=== PATIENT | female | born 1960 | race Caucasian/White ===

== ENCOUNTER 2024-08-25 10:00 | Emergency (ER) | payer BC, SELFPAY ==
--- OUTSIDE RECORDS SUMMARY | 2020-02-06 04:03 | XMS_ITS | Continuity of Care Document ---
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 Infuse by IV route. - Active Remicade 100 mg intravenous solution Administer Remicade 5mg/kg every eight weeks, infuse by IV route - Active Injectafer 50 mg iron/mL intravenous solution Administer 2 doses of 750mg Injectafer by IV route at least 7 days apart over at least 15 minutes - Active simvastatin 10 mg tablet take 1Tablet by ORAL route every day in the evening - Active multivitamin tablet take 1 tablet by oral route every day with food - Active trazodone 50 mg tablet take 1 Tablet by ORAL route every bedtime PRN - Active ROPINIROLE HCL (unknown strength) take 1 tablet by oral route 1 times every day 10mg Not Available - Active paroxetine 10 mg tablet take 1 tablet by oral route every day 10 MG - Active Procedures Procedure Date Offic/outpt E&m Estab Mod-hi 2 Routine Serum Collection Bld Ct; Hgb Ferritin Iron Iron Binding Capacity Cyanocobalamin Offic/outpt E&m Estab Mod-hi 2 19 Iv Infus Therap/dx-by Phys; To Injectafer, 1 mg Iv Infus Therap/dx-by Phys; To Injectafer, 1 mg Offic/outpt E&m Estab Mod-hi 2 19 Routine Serum Collection Immuniz Admin; 1/combo Vacc/to 19 [id number] Vaccine Immuniz Admin; 2/> Sing/comb V Hepatitis B Vac Adult Dose-im 9 Ferritin Folic Acid; Serum Iron Iron Binding Capacity Cyanocobalamin Vitamin D; 25 Hydroxy Offic/outpt E&m Estab Mod-hi 2 19 Routine Serum Collection Bld Ct; Hg/pltlt Ct Auto/compl 19 Hepatitis A Antibody; Igg & Ig Hep B Core Antibody Hepatitis B Surface Antibody Ag-immunoassay; Hep B Surface 9 Hepatic Function Panel Colonoscopy Flex; W/bx 1/mx Level Iv-surg Path Gross/micro 19 Offic/outpt E&m Estab Mod-hi 2 19 Offic/outpt E&m Estab Mod-hi 2 19 Stool Kits Given FilmArray GI Panel Offic/outpt E&m New Mod-hi Routine Serum Collection Gg; Iga, Igd, Igg, Igm, Ea C-reactive Prot Bld Ct; Hg/pltlt Ct Auto/compl 19 Advance Directives Directive Yes / No Effective Date File Name No Information Encounters Encounter Description Practice Location Reason(s) For Visit Diagnoses Date Provider Providers Copied on Encounter [facility] [address] [address] [address], [place], [id number], [place] tel:[phone] [facility] No Information 0 Garrett Stewart. [address] [facility], [address], [id number], [place]. tel:[phone] Offic/outpt E&m Estab Mod-hi 2 [facility], [address] [address], [place], [id number], [place] tel:[phone] [facility] Comment (chief complaint) Crohn's disease of both small and lg int w/o complicationsDie tary counseling and surveillance 0 Haley Jacobo. [address] [facility], [address], [id number], [place]. tel:[phone] Referring Provider: Referral Self, USE FOR SELF REFERRALS. [facility], [address] [address], [place], [id number], [place] tel:[phone] [facility] Crohn's disease of both small and lg int w/o complicationsIro n deficiency anemia, unspecified 0 Haley Jacobo. [address] [facility], [facility] [address], [place], [id number], [place]. tel:[phone] Referring Provider: Referral Self, USE FOR SELF REFERRALS. [facility], [address] [address], [place], [id number], [place] tel:[phone] [facility] No Information 9 Haley Jacobo. [address] [facility], [facility] [address], [place], [id number], [place]. tel:[phone] [facility], [address] [address], [place], [id number], [place] tel:[phone] [facility] Crohn's disease of both small and large intestine without complication 9 Haley Jacobo. [address] [facility], [facility] [address], [place], [place], [id number], [place]. tel:[phone] Offic/outpt E&m Estab Mod-hi 2 [facility], [address] [address], [place], [id number], [place] tel:[phone] [facility] GI Symptoms or Concerns (chief complaint) Crohn's disease of both small and large intestine without complicationDiar juan c, unspecifiedLower abdominal painDietary counseling and surveillance 9 Haley Jacobo. [address] [place] [address], [address], [id number], [place]. tel:[phone] Referring Provider: Referral Self, USE FOR SELF REFERRALS. [facility], [address] [address], [place], [id number], [place] tel:[phone] [facility] Iron deficiency anemia, unspecified 9 Jah Lake. [address], [id number], [place]. tel:[phone] Referring Provider: Referral Self, USE FOR SELF REFERRALS. [facility], [address] [address], [place], [id number], [place] tel:[phone] [facility] Iron deficiency anemia, unspecified 9 Amber Fernandez. [address] [facility], [address], [id number], [place]. tel:[phone] Referring Provider: Referral Self, USE FOR SELF REFERRALS. [facility], [address] [address], [place], [id number], [place] tel:[phone] [facility] No Information 9 Haley Jacobo. [address], [id number], [place]. tel:[phone] [facility], [address] [address], [place], [id number], [place] tel:[phone] [facility] Crohn's disease of both small and large intestine without complicationIron deficiency anemia, unspecified iron deficiency anemia type 9 Haley Jacobo. [facility], [address], [id number], . tel:[phone] Offic/outpt E&m Estab Mod-hi 2 [facility], [address] [address], [place], [place], [id number], [place] tel:[phone] [facility] GI Symptoms or Concerns (chief complaint) Crohn's disease of both small and large intestine without complicationDiet kathy counseling and surveillance 9 Haley Jacobo. [address] [facility], [facility] [address], [id number], [place]. tel:[phone] Referring Provider: Referral Self, USE FOR SELF REFERRALS. [facility], [address] [address], [place], [place], [id number], tel:[phone] [facility] No Information 9 No Information Offic/outpt E&m Estab Mod-hi 2 [facility], [address] [address], [place], [place], [id number], tel:[phone] [facility] GI Symptoms or Concerns (chief complaint) Crohn's disease of both small and large intestine without complicationDiet kathy counseling and surveillance 9 Adali Hong. [address] [facility], [facility] [address], [place], [id number], [place]. tel:[phone] Referring Provider: Beck Parks, [address] [place], [place], [facility]. tel:[phone] [facility], [address] [address], [place], [place], [id number], tel:[phone] [facility] Diarrhea, unspecifiedCrohn 's disease, unspecified, without complicationsDia rrhea, unspecified 9 Chris Lazo. [address] [facility], [facility] [address], [place], [id number], . tel:[phone] Referring Provider: Beck Parks, [address] [facility], [place], [place], [facility]. tel:[phone] [facility], [address] [address], [place], [id number], [place] tel:[phone] [facility] Diarrhea, unspecified 9 Haley Jacobo. [address] [place] [address], [address], [id number], [place]. tel:[phone] Offic/outpt E&m Estab Mod-hi 2 [facility], [address] [address], [place], [id number], [place] tel:[phone] [facility] GI Symptoms or Concerns (chief complaint) Diarrhea, unspecifiedLower abdominal painDecreased appetiteWeight lossDietary counseling and surveillanceElev ated blood-pressure reading, w/o diagnosis of htn 9 Haley Jacobo. [address] [place] [address], [id number], [place]. tel:[phone] Referring Provider: Referral Self, USE FOR SELF REFERRALS. Offic/outpt E&m Estab Mod-hi 2 [facility], [address] [address], [place], [id number], [place] tel:[phone] [facility] GI Symptoms or Concerns (chief complaint) Diarrhea, unspecifiedLower abdominal painDietary counseling and surveillance 9 Haley Jacobo. [address] [place] [address], [id number], [place]. tel:[phone] Jason Carballo MD. tel:[phone] erring Provider: Referral Self, USE FOR SELF REFERRALS. [facility], [address] [address], [place], [place], [id number], [place] tel:[phone] [facility] Diarrhea, unspecified 9 Radha Wong. [address] [place] [address], [id number], [place]. tel:[phone] Jason Carballo MD. tel:[phone] erring Provider: Referral Self, USE FOR SELF REFERRALS. Offic/outpt E&m New Mod-hi [facility], [address] [address], [place], [place], [id number], [place] tel:[phone] [facility] GI Symptoms or Concerns (chief complaint) Diarrhea, unspecified typeDietary counseling and surveillanceEsse ntial (primary) hypertension 201 9 Radha Wong. [address] [facility], [facility] [address], [place], [place], [id number], [place]. tel:[phone] Jason Carballo MD. tel:[phone] erring Provider: Referral Self, USE FOR SELF REFERRALS. Family History Family Member Type Diagnosis Age At Onset Sister Problem (finding) Colon polyps Brother Problem (finding) Alive and well Mother Problem (finding) Alive and well Father Problem (finding) Sister Problem (finding) Alive and well Daughter Problem (finding) Alive and well Son Problem (finding) Alive and well Immunizations Vaccine Date Status Comments Engerix-B administered Note: [facility] bi-d irectional interface ; Source: Other Registry Hep B, adult, 3 dose administered Source: New Immunization Record Pneumococcal conjugate PCV 13 administere d Source: New Immunization Record typhoid Vi capsular polysaccharide vaccine administered Note: [facility] bi-dir ectional interface ; Source: Other Registry Havrix administered Note: [facility] bi-d irectional interface ; Source: Other Registry Seasonal, quadrivalent, recombinant, injectable influenza vaccine, preservative free administered Note: [facility] bi-direct ional interface ; Source: Other Registry Influenza, injectable, MDCK, preservative free Flucelvax Quad 2017-2018Y administered Source: Other Provid er tetanus toxoid, reduced diphtheria toxoid, and acellular pertussis vaccine, adsorbed administered Note: [facility] bi-direct ional interface ; Source: Other Registry Influenza, injectable,quadrivalent, preservative free, pediatric administered Note: [facility] bi-directional interface ; Source: Other Registry tetanus and diphtheria toxoi ds, adsorbed, preservative free, for adult use (2 Lf of tetanus toxoid and 2 Lf of diphtheria toxoid) administered Note: [facility] bi-direct ional interface ; Source: Other Registry influenza virus vaccine, unspecified formulation administered Note: [facility] bi-di rectional interface ; Source: Other Registry Payers Payer name Insurance type Covered green party ID Thai vergara(s) [facility] [id number] Social History Type Description Quantity Date Captured Comments Sex Female Smoking Status No Information Chief Complaint And Reason For Visit No Information Reason For Referral Reason For Referral No Information Plan Of Treatment Date Type Action Status Goal Lifestyle education regardin g diet completed Goal Lifestyle education regardin g diet completed Goal Lifestyle education regardin g diet completed Goal Lifestyle education regardin g diet completed Goal Lifestyle education regardin g diet completed Goal Lifestyle education regardin g diet completed Goal Lifestyle education regardin g diet completed Referral Ordered: HGB Appointment date/timeframe: 02/11/2019 ordered Referral Ordered: Ferritin Appointment date/timeframe: 02/11/2019 ordered Referral Ordered: Iron/TIBC Appointment date/timeframe: 02/11/2019 ordered Referral Ordered: Vitamin B12 Appointment date/timeframe: 02/26/2019 ordered Referral Ordered: Administer 2 doses of 750mg Injectafer by IV route at least 7 days apart over at least 15 minutes ordered Referral Ordered: Doppler Mesenteric Vessels Appointment date/timeframe: 10/09/2018 ordered Referral Ordered: Colonoscopy Appointment date/timeframe: 11/06/2018 ordered Referral Ordered: CT Enterography WITH Contrast Appointment date/timeframe: 09/28/2018 ordered History Of Present Illness Encounter Date Complaint History Of Prese nt Illness Comment The patient is a 58-year-old female who is here for followup of Crohn's disease. The patient was diagnosed with Crohn's disease in approximately September 2018. She has had extensive ileal and focal transverse inflammation based on prior colonoscopy and prior CT scans. She has had some symptoms dating back to May 2018. Her symptoms previously were mainly diarrhea and abdominal cramping and nausea and decreased appetite and weight loss. At her last GI Clinic visit, we discussed treatment options for her Crohn's disease and she had elected to start Remicade. After her GI Clinic visit, the patient decided not to start Remicade since she was feeling well. She denies any GI symptoms at this time aside from some mild constipation. She does not need to use any laxatives. She denies any diarrhea or abdominal pain or nausea or vomiting, rectal bleeding, or weight loss. She does report some weight gain. GI Symptoms or Concerns The benito ent is a 58-year-old female who is here for followup of Crohn's disease. The patient was last seen in GI Clinic on December 25, 2018. She has had symptoms of diarrhea, abdominal pain, and weight loss dating back to May 2018. She had a CT enterography in September 2018 that showed inflammation involving most of her ileum and some of her jejunum. She had a subsequent CT enterography in November that showed no significant change in her inflammation involving most of the ileum and some of the jejunum. She also had a colonoscopy in September that revealed aphthous ulcers in the terminal ileum as well as some aphthous ulcers in the transverse colon. Biopsies revealed chronic ileitis and biopsies of the transverse colon revealed focal active colitis with a granuloma. These results together were consistent with Crohn's disease. I had the CT enterography images from November reviewed at [facility] as well today. I spoke with the radiologist at [facility] today and al GI Symptoms or Concerns Patient is a 58-year-old female who is here for followup of diarrhea, abdominal pain and weight loss. Patient developed symptoms of diarrhea, abdominal pain and weight loss in June 2018. She had a CT enterography in September 2014 that revealed inflammation involving most of her ileum and some of her jejunum. Subsequently, she had colonoscopy on October 10 that revealed some aphthous ulcers in the ileum as well as in the transverse colon. Biopsies of the ileum revealed some chronic ileitis and biopsies of the transverse colon revealed some focal active colitis with a granuloma. She was started on Lialda 4.8 g daily after her colonoscopy and was also taking Imodium tablets at that time. She was seen again in GI Clinic by Dr. Hal Bro on November 10, 2018. At that time, she was started on a prednisone taper and she reports that she has stopped taking mesalamine about a week after that appointment. She is down to 10 mg per day on her prednisone taper and will be off predn GI Symptoms or Concerns The benito ent is a very pleasant 58-year-old woman with past medical history significant for hyperlipidemia and irritable bowel syndrome. She was in her normal state of health until early this year when she began developing diarrhea and gas. For 20 years, she had been taking fiber with good control of her diarrhea predominant irritable bowel syndrome, but this stopped working. She was seen in clinic, had a set of labs that showed a mildly elevated CRP at 12, otherwise CBC and electrolytes were normal. She was counseled to try Imodium, and found symptomatic relief with this, but continued to have periumbilical cramping and when stopping the Imodium, would have returns of urgent diarrhea up to 7 times a day. She was then seen back in clinic and had a CT scan, which showed inflammation in the small intestine, worrisome for enteritis. She then underwent a colonoscopy, which showed a few aphthous ulcerations in the transverse colon, one of which showed acute inflammation and a granu GI Symptoms or Concerns Patient is a 57-year-old female who is here for followup of diarrhea and abdominal pain. She was last seen in GI clinic on July 06, 2018. She reports she was diagnosed with irritable bowel syndrome over 20 years ago. She reports her diarrhea has become more constant more recently. She reports a lot more stress and anxiety in her personal life and this has not changed since her last GI clinic visit. She had negative stool studies and negative blood tests for thyroid disease and celiac disease. She reports her last colonoscopy was approximately 5 years ago at an outside facility. She did not want to pursue a colonoscopy at her last GI clinic visit. After her last GI clinic visit, we recommended Levsin as needed for abdominal pain and diarrhea and Imodium as needed just for diarrhea. We also recommended some fiber wafers to see if this would help with some of her diarrhea. She reports the Levsin did not help, so she stopped taking this. She reports that fiber wafers did not taste GI Symptoms or Concerns Patient is a 57-year-old female who is here for followup of diarrhea. Patient saw Dr. Marvin Garcia on June 12, 2018. Patient reports she was diagnosed with IBS diarrhea approximately 20 years ago after she quit smoking. She reports that 2 or 3 months ago, she developed more constant diarrhea. She reports that around this time, she developed a lot of more stress and anxiety relating to some personal problems she has been having in her relationship. She anticipates this will hopefully start to improve over the coming months. She reports that if she does not take Imodium, she has 6 to 7 watery bowel movements everyday. She has been taking up to 5 Imodium tablets per day, which actually have sometimes led to constipation. She reports that she occasionally does have some lower abdominal cramping prior to bowel movements. She reports she has had a colonoscopy at an outside facility about 5 years ago, was told to repeat in 10 years. She denies any rectal bleeding or significant weight GI Symptoms or Concerns A 57-yea r-old female who presents for evaluation of 2 to 3 months of worsened diarrhea and gas. She says that 20 years ago, she was diagnosed with diarrhea predominant irritable bowel syndrome and that for the most part, symptoms have been well controlled on FiberCon 6 per day. Over the past 2 to 3 months, she has been under a lot more stress and diarrhea has been slightly worse. She has had increasing gas, will sometimes have constipation in the morning and then diarrhea in the afternoon.She did go on vacation to [place] and returned about a week and a half ago. She did have a bladder infection and was on antibiotics for about a week, but stopped those about a week ago. She denies any known sick contacts on her trip. Over the past week and a half, her diarrhea has been much worse up to 8 or 9 times per day with significant urgency and lower abdominal cramping relieved with bowel movements. She has not had any blood in her stool or has she had nausea, vomiting, fevers, or Functional Status Date Functional Assessmen t No Information Instructions Date Instruction Additional Infor radha -Patient has decided to hold off on starting remicade at this time since is feeling well - patient is aware that Crohn's disease may worsen over time and complications such as strictures, fistulas, or abscesses may occur over time without treatment-Will perform an MR enterography in 3 months to reassess Crohn's disease activity and if there is significant progression of Crohn's disease then she will reconsider starting remicade-Avoid NSAIDs-Calcium and vitamin D-Pneumovax vaccination deferred for tak-Btipgd-ms in 3 months, after MRE - patient will let us know if she develops significant persistent GI symptoms before then Related to Crohn's disease of both small and lg int w/o complications Lifestyle education regarding di et Related to Dietary counseling and surveillance -We had a long discu ssion today regarding treatment options including 6MP/azathioprine, humira, remicade. Patient has decided to start remicade for treatment of her moderate to severe Crohn's disease. We discussed R/B/A of remicade, including, but not limited to, risks of serious infections, cancer, lymphoma, allergic reactions, infusion reactions, liver injury, drug induced lupus or psoriasis, heart failure, seizures, and demyelinating disorders, and patient agreed to proceed with remicade.-Avoid NSAIDs-Calcium and vitamin D-Pneumovax vaccination 8 weeks after prevnar rkovacb-Bprojq-xp in 2 months Related to Crohn's disease of both small and large intestine without complication Lifestyle education regarding di et Related to Dietary counseling and surveillance -Labs as ordered-Pat ient's colonoscopy biopsy results and CTE results are consistent with Crohn's disease. We will request the [facility] radiology CTE results from 09/2018 and 11/2018 be reviewed at [facility] as soon as possible to confirm the extent of the involved small bowel as this may affect medication treatment choices. We had a brief discussion about biologics and immunomodulators today.-Continue prednisone taper to off (will be off in approximately 2 weeks)-Avoid NSAIDs-Calcium and vitamin D-Prevnar vaccination today-Pneumovax vaccination after 8 weeks-Start hepatitis B vaccinations today-Continue hepatitis A vaccinations through [facility]-Vwozzw-jg in 4 weeks Related to Crohn's disease of both small and large intestine without complication Lifestyle education regarding di et Related to Dietary counseling and surveillance Lifestyle education regarding di et Related to Dietary counseling and surveillance Colon Cancer Prevention Related to Diarrhea, unspecified -Colonoscopy with TI evaluation and random colon biopsies-CT enterography-Can continue to use imodium as needed-If above tests unrevealing, and if GI symptoms persist, then would consider EGD with gastric and duodenal biopsies for further lpmupzaldh-Crwyzy-ni in 6 weeks Related to Diarrhea, unspecified Lifestyle education regarding di et Related to Dietary counseling and surveillance -Levsin 0.125 mg tess ry 6 hours as needed for abdominal pain and diarrhea-Imodium 1-2 tabs every 6 hours as needed for diarrhea without abdominal pain-Try fiber wafers in place of fibercon pills to see if the wafers work better-Patient advised not to take levsin or imodium if she becomes constipated-Patient declined colonoscopy with TI intubation and random colon biopsies for further evaluation at this npsi-Gognin-oi in 2 months Related to Diarrhea, unspecified Lifestyle education regarding di et Related to Dietary counseling and surveillance Check stools and blo od work and if all unremarkable, I have advised her to eat a bland diet, continue Imodium as needed, and contact us in the next 1 to 2 weeks if not better. If symptoms persist, would probably pursue colonoscopy next with biopsies. Otherwise, the patient thinks she is due for next colonoscopy in about 5 years. She can continue omeprazole for heartburn and when she is trying to go off it, she has a significant flare of symptoms. She can follow up as needed. Related to Diarrhea, unspecified type Lifestyle education regarding di et Related to Dietary counseling and surveillance Assessments Type Assessment Date No Information Patient Care Teams Name Effective Dates (start - stop) Status Members No Information
--- OUTSIDE RECORDS SUMMARY | 2020-02-06 04:03 | XMS_ITS | Continuity of Care Document ---
Author Organization [facility] Address [address] [address] [place] [address] Phone Care Team Providers Care Check Writer Salesperson Name Role Phone Terry Tucker MD Unavailable [...] Serum Collection Immuniz Admin; 1/combo Vacc/to 19 [id number] Vaccine Immuniz Admin; 2/> Sing/comb V Hepatitis [...] Encounter [facility] [address] [address], [place], [id number], [place] tel:[phone] [facility] No Information 0 Garrett Stewart. [address] [facility], [address], [id number], [place]. tel:[phone] Offic/outpt E&m Estab Mod-hi 2 [facility], [address] [address], [place], [id number], [place] tel:[phone] [facility] Comment (chief complaint) Crohn's disease of both small and lg int w/o complicationsDie tary counseling and surveillance 0 Haley Jacobo. [address] [facility], [address], [id number], [place]. tel:[phone] Referring Provider: Referral Self, USE FOR SELF REFERRALS. [facility], [address] [address], [place], [id number], [place] tel:[phone] [facility] Crohn's disease of both small and lg int w/o complicationsIro n deficiency anemia, unspecified 0 Haley Jacobo. [address] [facility], [facility] [address], [place], [id number], [place]. tel:[phone] Referring Provider: Referral Self, USE FOR SELF REFERRALS. [facility], [address] [address], [place], [id number], [place] tel:[phone] [facility] No Information 9 Haley Jacobo. [address] [facility], [facility] [address], [place], [id number], [place]. tel:[phone] [facility], [address] [address], [place], [id number], [place] tel:[phone] [facility] Crohn's disease of both small and large intestine without complication 9 Haley Jacobo. [address] [facility], [facility], [place], [place], [id number], [place]. tel:[phone] Offic/outpt E&m Estab Mod-hi 2 [facility], [address] [address], [place], [id number], [place] tel:[phone] [facility] GI Symptoms or Concerns (chief complaint) Crohn's disease of both small and large intestine without complicationDiar juan c, unspecifiedLower abdominal painDietary counseling and surveillance 9 Haley Jacobo. [address] [place] [address], [address], [id number], [place]. tel:[phone] Referring Provider: Referral Self, USE FOR SELF REFERRALS. [facility], [address] [address], [place], [id number], [place] tel:[phone] [facility] [place] Iron deficiency anemia, unspecified 9 Jah Lake. [address], [id number], [place]. tel:[phone] Referring Provider: Referral Self, USE FOR SELF REFERRALS. [facility], [address] [address], [place], [id number], [place] tel:[phone] [facility] [place] Iron deficiency anemia, unspecified 9 Amber Fernandez. [address] [facility], [address], [id number], [place]. tel:[phone] Referring Provider: Referral Self, USE FOR SELF REFERRALS. [facility], [address] [address], [place], [id number], [place] tel:[phone] [facility] [place] No Information 9 Haley Jacobo. [address], [id number], [place]. tel:[phone] [facility], [address] [address], [place], [id number], [place] tel:[phone] [facility] Crohn's disease of both small and large intestine without complicationIron deficiency anemia, unspecified iron deficiency anemia type 9 Haley Jacobo. [facility], [address], [id number], . tel:[phone] Offic/outpt E&m Estab Mod-hi 2 [facility], [address] [address], [place], [place], [id number], [place] tel:[phone] [facility] GI Symptoms or Concerns (chief complaint) Crohn's disease of both small and large intestine without complicationDiet kathy counseling and surveillance 9 Haley Jacobo. [address] [facility], [facility] [address], [place], [id number], [place]. tel:[phone] Referring Provider: Referral Self, USE FOR SELF REFERRALS. [facility] Digestive [facility], [address] [address], [place], [place], [id number], tel:[phone] [facility] No Information 9 No Information Offic/outpt E&m Estab Mod-hi 2 [facility] Digestive [facility], [address] [address], [place], [place], [id number], tel:[phone] [facility] GI Symptoms or Concerns (chief complaint) Crohn's disease of both small and large intestine without complicationDiet kathy counseling and surveillance 9 Adali Hong. [address] [facility], [facility] [address], [place], [id number], [place]. tel:[phone] Referring Provider: Beck Parks, [address] [place], [place], [facility]. tel:[phone] [facility] Digestive [facility], [address] [address], [place], [place], [id number], tel:[phone] [facility] Diarrhea, unspecifiedCrohn 's disease, unspecified, without complicationsDia rrhea, unspecified 9 Chris Lazo. [address] [facility], [facility] [address], [place], [id number], . tel:[phone] Referring Provider: Beck Parks, [address] [facility], [employer], [place], [facility]. tel:[phone] [facility], [address] [address], [place], [id number], [place] tel:[phone] [facility] Diarrhea, unspecified 9 Haley Jacobo. [address] [place] [address], [address], [id number], [place]. tel:[phone] Offic/outpt E&m Estab Mod-hi 2 [facility], [address] [address], [place], [id number], [place] tel:[phone] [facility] GI Symptoms or Concerns (chief complaint) Diarrhea, unspecifiedLower abdominal painDecreased appetiteWeight lossDietary counseling and surveillanceElev ated blood-pressure reading, w/o diagnosis of htn 9 Haley Jacobo. [address] [place] [address], [id number], [place]. tel:[phone] Referring Provider: Referral Self, USE FOR SELF REFERRALS. Offic/outpt E&m Estab Mod-hi 2 [facility], [address] [address], [place], [id number], [place] tel:[phone] [facility] GI Symptoms or Concerns (chief complaint) Diarrhea, unspecifiedLower abdominal painDietary counseling and surveillance 9 Haley Jacobo. [address] [place] [address], [id number], [place]. tel:[phone] Jason Carballo MD. tel:[phone] erring Provider: Referral Self, USE FOR SELF REFERRALS. [facility], [address] [address], [place], [place], [id number], [place] tel:[phone] [facility] Diarrhea, unspecified 9 Radha Wong. [address] [place] [address], [id number], [place]. tel:[phone] Jason Carballo MD. tel:[phone] erring Provider: Referral Self, USE FOR SELF REFERRALS. Offic/outpt E&m New Mod-hi [facility], [address] [address], [place], [place], [id number], [place] tel:[phone] [facility] GI Symptoms or Concerns (chief complaint) Diarrhea, unspecified typeDietary counseling and surveillanceEsse ntial (primary) hypertension 201 9 Radha Wong. [address] [facility], [facility], [place], [place], [id number], [place]. tel:[phone] Jason Carballo MD. tel:[phone] erring Provider: Referral Self, USE FOR SELF [...] Registry Payers Payer name Insurance type Covered republican ID Thai vergara(s) [facility] [id number] Social History Type Description Quantity Date Captured [...] CT enterography images from November reviewed at [facility] as well today. I spoke with the radiologist at [facility] today and al GI Symptoms or [...] the afternoon.She did go on vacation to [place] and returned about a week and a [...] NSAIDs-Calcium and vitamin D-Pneumovax vaccination deferred for iub-Igumgy-lt in 3 months, after MRE - patient [...] vitamin D-Pneumovax vaccination 8 weeks after prevnar qeaxepx-Scengu-iw in 2 months Related to Crohn's disease of both small and large intestine without complication Lifestyle education regarding di et Related to Dietary counseling and surveillance -Labs as ordered-Pat ient's colonoscopy biopsy results and CTE results are consistent with Crohn's disease. We will request the [facility] radiology CTE results from 09/2018 and 11/2018 be reviewed at [facility] as soon as possible to confirm the extent of the involved small bowel as this may affect medication treatment choices. We had a brief discussion about biologics and immunomodulators today.-Continue prednisone taper to off (will be off in approximately 2 weeks)-Avoid NSAIDs-Calcium and vitamin D-Prevnar vaccination today-Pneumovax vaccination after 8 weeks-Start hepatitis B vaccinations today-Continue hepatitis A vaccinations through [facility]-Thwpfv-bx in 4 weeks Related to Crohn's disease [...] with gastric and duodenal biopsies for further gyewldjjim-Jpurob-ku in 6 weeks Related to Diarrhea, unspecified [...] colon biopsies for further evaluation at this lztl-Wozlkp-fz in 2 months Related to Diarrhea, unspecified [...]
--- OUTSIDE RECORDS SUMMARY | 2024-08-23 05:55 | XMS_ITS | Continuity of Care Document ---
Author Organization [facility] Address [address] [address] Phone Care Team Providers Care Cylinder Checker Name Role Phone OTHER Primary Care Provider Tarun Yoo Attending Provider Care Teams Patient Care Team Team Status: Active Member Role Status Dates OTHER Primary Care Provider Active Patient Care Team Team Status: Inactive Member Role Status Dates OTHER Primary Care Provider Active Start: August 23, 2024 End: August 23, 2024 FAROOQ Hung Attending Provider Active Start: August 23, 2024 End: August 23, 2024 Allergies, Adverse Reactions, Alerts No known allergies Social History Smoking Status Unknown if ever smoked Observation Status Observation Response Date of Response Sex Assigned At Female September Medications Medication Status Dose Units Route Directions Qty Days St art Date Stop Date End Date Instructions Adherence Paroxetine Hcl 10 mg Tablet Active 10 MG PO ONCE DAILY August 23, 2024 12:00a m Trazodone 50 mg Tablet Active 50 MG TABLET NEEDED as needed August 23, 2024 12:00a m Simvastatin 10 mg Tablet Active 30 MG TABLET ONCE DAILY August 23, 2024 12:00a m Ropinirole 0.25 mg Tablet Active 0.25 MG TABLET ONCE DAILY August 23, 2024 12:00a m Vital Signs Vital Reading Result Reference Range Collection Date/Time Height 65 [in_i] August 23, 2024 10:40am Weight 213.00 [lb_av] August 23 10:40am Body Temperature 98.4 [degF] 97.6-99.6 August 23, 2024 10:40am Heart Rate 89 /min 60-100 August 23, 2024 10:40am Respiratory rate 18 /min -August 23, 2024 10:40am Oxygen saturation by Pulse oximetry 97 % August 23, 2024 10:4 0am BP Systolic 133 mm[Hg] August 23, 2024 10:40am BP Diastolic 90 mm[Hg] August 23, 2024 10:40am Insurance Providers Guarantor Astrid Andrews ak Address [address] [place] [address] Contact Info. Home Phone: Payer Policy Id Subscriber's Name Subscriber Id Effectiv e Date Expiration Date KHOA GARCIA [id number] Astrid Hernández [id number] Encounters Encounter Location(s) Arrival/Admit Date Discharge/Depart Date Provider(s) Departed Clinical [facility] August 23, 2024 10:17am August 23, 2024 10:54am Tarun Muniz Plan of Treatment Future Tests Future scheduled test information is unavailable Pending Tests Test Name Ordered Date Scheduled Date Group A Streptococcus (PCR) August 23, 2024 10:3 9am Future Visits Future appointment information is unavailable Referrals to Other Providers Reason for Referral Referral Start Date Provider Angeles manriquez Contact Information Provider Address OTHER Future Procedures Future procedure information is unavailable Future Medications Future medication information is unavailable Patient Instructions Patient instructions are unavailable
--- OUTSIDE RECORDS SUMMARY | 2024-08-25 10:04 | XMS_ITS | Encounter Summary ---
Author Organization [facility] Address [address] [place] [address] Care Team Providers Care Brim Stretcher Name Role Phone Simone Hamitlon MD Primary Care Provid er Simone Hamilton MD Unavailable [phone] Rusty Massey MD Unavailable Alberto Purvis PA-C Unavailable Beau Bertrand MD Unavailable Nhan Byrd MD Unavailable Shala Washburn DO Primary Care Provider [phone] Simone Hamilton MD Unavailable [phone] Nhan Byrd MD Unavailable [phone] Reason for Referral * Consultation (Routine) - Closed Specialty Diagnoses / Procedures Referred By Carol bailey Referred To Contact Diagnoses Meningioma (H) Simone Hamilton MD [address] [place] [address] Phone: tel: fax: [facility] [address] [place] [address] Phone: tel: fax: Referral ID Status Reason Start Date Expiration Date Visits Re quested Visits Authorized [id number] Closed 07/09/2020 07/09/2021 1 1 Comments Your provider has referred you for the following: Consult at [facility]: Neurology Clinic [facility] [email or web address] N: [facility] [email or web address] Please be aware that coverage of these services is subject to the terms and limitations of your health insurance plan. Call member services at your health plan with any benefit or coverage questions. Please bring the following with you to your appointment: (1) Any X-Rays, CTs or MRIs which have been performed. Contact the facility where they were done to arrange for pick remover prior to your scheduled appointment. (2) List of current medications (3) This referral request (4) Any documents/labs given to you for this referral Reason for Visit * Reason Onset Date Comments MyChart Communication 07/09/2020 Encounter Details Date Type Department Care Team (Late st Contact Info) Description 07/09/2020 MyC Medical Advice [address] [place] [address] Simone Hamilton MD [address] [place], [place] [address] MyChart Communication Social History Tobacco Use Types Packs/Day Years Used Date Smoking Tobacco: Former Cigarettes Q uit: 02/15/1996 Smokeless Tobacco: Never Comments:1996 Alcohol Use Standard Drinks/Week Comments Yes 0 (1 standard drink = 0.6 oz pur e alcohol) 2 drinks/wk PHQ-2 Answer Date Recorded PHQ-2 Score 0 06/25/2020 Comments No Sex and Gender Information Value Date Recorded Sex Assigned at Female 09/11/2020 9:06 AM CDT Legal Sex Female 3:25 AM BABBITTER Gender Identity Female 09/11/2020 9:06 AM CDT Sexual Orientation Straight 09/11/2020 9: 06 AM CDT 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 No / Unsure 07/08/2020 3:03 PM CDT documented as of this encounter Miscellaneous Notes * Telephone Encounter - Marcia Hernandez RN - 07/09/2020 11:40 AM CDT Please advise on CT results when able Marcia Hernandez RN, BSN documented in this encounter Plan of Treatment Scheduled Referrals Name Type Priority Associated Diagnoses Orde r Schedule NEUROLOGY ADULT REFERRAL Referral Routine Meningioma (H) Ordered: 07/09/2020 documented as of this encounter Visit Diagnoses Diagnosis Meningioma (H)- Primary Benign neoplasm of cerebral meninges documented in this encounter Additional Health Concerns Assessment Noted Time PHQ-9 Depression Total Score: 0 01/02/20 19 11:21 AM BABBITTER documented as of this encounter Care Teams Brim Stretcher Relationship Specialty Start Date End Date Simone Hamilton MD [address] [place] [address] PCP - General Internal Medicine 12/24/15 12/29/22 Shala Washburn DO [address] [place] [address] PCP - General Family Practice 12/30/22 Simone Hamilton MD [address] [place] [address] Assigned PCP 03/19/18 01/29/22 [place] [address] [place], [place] [id number] Assigned OBGYN Provider 12/07/19 6//2 1 Alberto Purvis PA-C [address] [place] [id number] Assigned Neuroscience Provider 07/27/20 12/13/20 [place] [address] [place] [id number] Assigned Neuroscience Provider 12/14/20 06/11/22 Nhan Byrd MD [address] [place] [address] Assigned PCP 01/30/22 05/06/23 Simone Hamilton MD [address] [place] [address] Assigned PCP 05/07/23 11/06/23 Nhan Byrd MD [address] [place] [address] Assigned PCP 11/07/23 documented as of this encounter
--- OUTSIDE RECORDS SUMMARY | 2024-08-25 10:05 | XMS_ITS | Clinical Summary ---
Author Organization [email or web address] [facility] Address [address] [place] [address] Care Team Providers Care Superintendent Greens Name Role Phone Shala Washburn DO Primary Care Provider [phone] Allergies Active Allergy Reactions Criticality Noted Date Comments Sertraline Hcl Diarrhea,Headache 05/02/2002 Medications multivitamin (MVI) tablet Take 1 Tablet by mouth once daily. 4 Active Lactobacillus rhamnosus GG 5 billion cell chew Chew by mouth. 4 Active cholecalciferol (Vitamin D-3) 2,000 unit capsule Take 1 Capsule (2,000 units) by mouth once daily. 4 Active elderberry fruit 350 mg cap Take by mouth. 4 Active valACYclovir (VALTREX) 500 mg tabletIndications:H erpes simplex disease Take 1 tablet twice daily for 3 days at signs of an outbreak 6 Tablet 3 4 Active rOPINIRole (REQUIP) 0.5 mg tabletIndications:R estless leg syndrome Take 1 Tablet (0.5 mg) by mouth at bedtime. 90 Tablet 3 4 Active traZODone (DESYREL) 50 mg tabletIndications:I nsomnia, idiopathic Take 1 Tablet (50 mg) by mouth at bedtime. 90 Tablet 3 4 Active PARoxetine (PAXIL) 10 mg tabletIndications:N europathic pain,Generalized anxiety disorder Take 1 Tablet (10 mg) by mouth once daily in the morning. 90 Tablet 1 5 Active simvastatin (ZOCOR) 20 mg tabletIndications:H yperlipidemia, unspecified hyperlipidemia type Take 1.5 Tablets (30 mg) by mouth at bedtime. 135 Tablet 1 5 Active Active Problems Problem Noted Date Diagnosed Date Colon polyp 11/18/2023 Overview (11/18/2023): Colonoscopy 10/2023 TA, repeat in 7 years Restless leg syndrome 11/17/2022 Insomnia, idiopathic 11/17/2022 Neuropathic pain 11/17/2022 Generalized anxiety disorder 11/17/2022 Irritable bowel syndrome wit h both constipation and diarrhea 11/17/2022 Encounters Date Type Department Care Team Description 07/24/2024 4:00 PM CDT Ancillary Procedure [facility] [address] [place] [address] 07/24/2024 Travel from Last 3 Months Immunizations Immunization Administration Dates Next Due Hepatitis A (Adult) 12/11/2018 Hepatitis B (Adult) 12/25/2018 Influenza RIV4 (Age 18+ Years) PRESERV FREE 10/16 Influenza Virus, Unspecified 12/03/1994 Influenza, IIV4 11/17/2022,12/20/2021 Influenza, IIV4 (Age 6-35 Mos) 11/26/2015 Influenza,CCIIV4 PRESERV FREE 12/29/2020 Pneumococcal conj 13-Valent (Prevnar 13) 019 Td (Age >=7 Years) 04/15/2004 Td, Preservative Free (age >= 7 Years) 5 Tdap 09/14/2017 Typhoid (injectable) 12/11/2018 Zoster (Shingrix-RZV, recombinant) 07/28/2023, Family History Medical History Relation Name Comments ALS Father Hypertension Mother Neuropathy Mother Cancer-breast No Family History Cancer-ovarian No Family History Relation Name Status Comments Father Mother Social History Tobacco Use Types Packs/Day Years Used Date Smoking Tobacco: Former Cigarettes Smokeless Tobacco: Never Tobacco Cessation:Counseling Given: Yes Alcohol Use Standard Drinks/Week Comments Yes 7 (1 standard drink = 0.6 oz pur e alcohol) wine daily PHQ-2 Answer Date Recorded PHQ-2 TOTAL SCORE 0 11/22/2023 Social Connections Answer Date Recorded Frequency of Communication with Friends and Fami ly 0 11/17/2022 Financial Resource Strain Answer Date R ecorded Difficulty of Paying Living Expenses 3 11/17/2022 Difficulty of Paying Living Expenses Not on file 11/17/2022 Food Insecurity Answer Date Recorded Worried About Running Out of Food in the Last Ye ar 1 11/17/2022 Transportation Needs Answer Date Record ed Lack of Transportation (Medical) 1 11/17/2022 Housing Stability Answer Date Recorded Unable to Pay for Housing in the Last Year 1 11/17/2022 Comments No Sex and Gender Information Value Date Recorded Sex Assigned at Not on file Legal Sex Female 5:25 AM MERCANTILE AGENT Gender Identity Not on file Sexual Orientation Not on file Obstetrics History Last Filed Vital Signs Vital Sign Reading Time Taken Comments Blood Pressure 131/85 11/22/2023 8:14 AM CDT Pulse 79 11/22/2023 8:14 AM CDT Temperature 36.7 C (98.1 F) 09/07/2022 1:06 PM CDT Respiratory Rate - - Oxygen Saturation 97% 11/22/2023 8:14 AM CDT Inhaled Oxygen Concentration - - Weight 92.3 kg (203 lb 6.4 oz) 11/22/2023 8:14 A M CDT Height 165.9 cm (5' 5.32) 11/22/2023 8:14 AM CD T Body Mass Index 33.52 11/22/2023 8:14 AM CDT Plan of Treatment Upcoming Encounters Date Type Department Care Team (Late st Contact Info) Description 11/26/2024 10:35 AM CDT Office Visit [facility] [address] [place] [address] Shala Washburn, [address] [place] [address] Health Maintenance Due Date Last Done Comments Hepatitis B series for 19+ (2 of 3 - 19+ 3-dose series) 01/22/2019 12/25/2018 Pneumococcal series for age 50+ (2 of 2 - PPSV23) 12/26/2019 12/25/2018 RSV vaccine for adults or (1 - Risk 60-74 years 1-dose series) 2022 COVID-19 vaccine series ( season) 2023 03/03/2021, 09/12/2020, 08/22/2020 Pap test for age 21-65 08/26/2024 0 (Verified in Care Everywhere or Patient Record) Influenza Vaccine (#1) 2024 3, 12/20/2021, 12/29/2020, Additional history exists BMI (ht and wt on same day) for age 18+ 11/21/2024 11/22/2023, 11/11/2023, 11/17/2022 Depression screening for age 12+ 11/22/2024 11/23/2023, 11/22/2023, 11/19/2022, Additional history exists Mammogram for age 45-75 07/24/2025 07/25/19, 07/05/2023, 06/28/2022 (Verified in Care Everywhere or Patient Record) Tetanus booster 09/15/2027 09/14/2017, 03/2004, 04/15/2004 Lipids for age 45-75 12/12/2028 12/13/2023, 11/17/2022, 05/13/2022 (Verified in Care Everywhere or Patient Record) Colonoscopy through age 75 11/14/203011/14 (Completed outside of [facility]), 10/24/2018 (Verified in Care Everywhere or Patient Record) Hepatitis C screening for age 18-79 Addressed 02/16/2017 (Verified in Care Everywhere or Patient Record) Overridden with the intention of not completing the topic HIV for age 15-65 Addressed 10/12/2021 (Ve rified in Care Everywhere or Patient Record) Overridden with the intention of not completing the topic Zoster (shingles) series for age 50+ Completed 07/28/2023, 01/24/2023 Procedures Procedure Name Priority Date/Time Associated Diagnosis Comments XR MAMMO BRITTANY BILAT SCREEN Routine 07/24/2024 4:12 PM CDT Visit for screening mammogram LIPID PANEL W REFLEX MEASURED LDL Routine 12/13/2023 10:30 AM CDT Hyperlipidemia, unspecified hyperlipidemia type from Last 3 Months or Most Recently Relevant to Health Maintenance Results * XR MAMMO BRITTANY BILAT SCREEN (07/24/2024 4:12 PM CDT) Anatomical Region Laterality Modality BREASTS, Breast Left, Breast Right Bilateral Mammography Impressions 07/25/2024 3:26 PM CDT There is no radiographic evidence for malignancy. Recommend annual mammograms. MAMMOGRAM ASSESSMENT: ACR 1 Negative PATIENTS: You will also receive a letter with your examination results in an easy to read format. If you have questions about your results, please contact your referring provider. Narrative 07/25/2024 3:26 PM CDT For Patients: As a result of the Century Cures Act, medical imaging exams and procedure reports are released immediately into your electronic medical record. You may view this report before your referring provider. If you have questions, please contact your health care provider. XR MAMMO BRITTANY BILAT SCREEN [[id number]] CLINICAL HISTORY: This is an asymptomatic 63 y.o. patient. INDICATION FOR EXAM: Mammogram Screening. TECHNIQUE: CC and MLO views were obtained. This study was evaluated with the assistance of Computer-Aided Detection. Breast Tomosynthesis was used in interpretation. COMPARISON FILM: Yes 07/05/23 [facility] FINDINGS: There are scattered areas of fibroglandular density. There are no dominant masses, suspicious micro calcifications or areas of architectural distortion. us Shala Washburn DO MAMMO Final Result * (ABNORMAL) LIPID PANEL W REFLEX MEASURED LDL (12/13/2023 10:30 AM CDT) CHOLESTEROL, TOTAL 241(H) <200 mg/dL [facility] HDL CHOLESTEROL 55 > OR = 50 mg/dL [facility] TRIGLYCERIDES 166(H) <150 mg/dL [facility] LDL-CHOLESTEROL 156(H) mg/dL (calc) [facility] Comment: Reference range: <100 Desirable range <100 mg/dL for primary prevention; <70 mg/dL for patients with CHD or diabetic patients with > or = 2 CHD risk factors. LDL-C is now calculated using the Ayo-Angulo calculation, which is a validated novel method providing better accuracy than the Friedewald equation in the estimation of LDL-C. Ayo SS et al. ANGEL. 2013;310(19): 5563-0808 (http://education.556 Fitness.Returbo/faq/VJL436) CHOL/HDLC RATIO 4.4 <5.0 (calc) [facility] NON HDL CHOLESTEROL 186(H) <130 mg/dL (calc) [facility] Comment: For patients with diabetes plus 1 major ASCVD risk factor, treating to a non-HDL-C goal of <100 mg/dL (LDL-C of <70 mg/dL) is considered a therapeutic option. Blood BLOOD SPECIMEN / Unknown 12/13/2023 10:30 AM CDT 12/13/2023 10:31 AM CDT Shala Washburn DO CHEMISTRY Final Result [facility] [address] [place] [address], [facility] [address] [place] [address] from Last 3 Months or Most Recently Relevant to Health Maintenance Insurance [facility] Care Teams Superintendent Greens Relationship Specialty Start Date End Date Sh[place] [address] PCP - General Family Practice 04/26/23
--- OUTSIDE RECORDS SUMMARY | 2024-08-25 10:05 | XMS_ITS | Encounter Summary ---
Author Organization [facility] Address [address] [place] [address] Care Team Providers Care Vehicle Service Attendant Name Role Phone Simone Hamilton MD Primary Care Provid er Faye Linares APRN MANAGER MENTAL HEALTH Unavailable Un available Simone Hamilton MD Unavailable [phone] Simone Hamilton MD Unavailable [phone] Harjit Chappell DPM Unavailable Rusty Massey MD Unavailable [phone] Alberto Purvis PA-C Unavailable [phone] Beau Bertrand MD Unavailable Nhan Byrd MD Unavailable [phone] Shala Washburn DO Primary Care Provider [phone] Simone Hamilton MD Unavailable [phone] Nhan Byrd MD Unavailable Reason for Visit * Reason Comments Medication Refill Relpax Encounter Details Date Type Department Care Team (Late st Contact Info) Description 03/21/2017 Refill [facility] [address] [place] [phone] Simone Hamilton MD [address] [place], [place] [address] Medication Refill (Relpax) Social History Tobacco Use Types Packs/Day Years Used Date Smoking Tobacco: Former Cigarettes Q uit: 02/15/1996 Smokeless Tobacco: Never Comments:1996 Alcohol Use Standard Drinks/Week Comments Yes 0 (1 standard drink = 0.6 oz pur e alcohol) 2 drinks/wk Comments No Sex and Gender Information Value Date Recorded Sex Assigned at Female 09/11/2020 9:06 AM CDT Legal Sex Female 3:25 AM INSTRUMENT SPECIALIST Gender Identity Female 09/11/2020 9:06 AM CDT Sexual Orientation Straight 09/11/2020 9: 06 AM CDT 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 RELPAX 40 MG tablet [Pharmacy Med Name: RELPAX 40MG TABS] 6 tablet 1 Sig: TAKE ONE AT THE ONSET OF HEADACHE, MAY REPEAT IN TWO HOURS, LIMIT TO 2 TABLETS PER 24 HOURS Serotonin Agonists Failed 03/21/2017 12:25 PM Failed - Blood pressure under 140/90 BP Readings from Last 3 Encounters: 02/16/17 158/90 03/08/16 136/90 01/12/16 110/80 Failed - Serotonin Agonist request needs review. Please review patient's record. If patient has had 8 or more treatments in the past month, please forward to provider. Passed - Recent or future visit with authorizing provider's specialty Patient had office visit in the last year or has a visit in the next 30 days with authorizing provider. See Patient Info tab in inbasket, or Choose Columns in Meds & Orders section of the refill encounter. Last OV: 02/16/17 Passed - Patient is age 18 or older Passed - No active on record Passed - No positive test in past 12 months Routing refill request to provider for review/approval because: BP out of SO parameters Pt averaging 15 tablets (>8 treatments/month) if she has used all the refills there were sent 10/12/16. Please advise, thanks. RUMENT SPECIALIST documented in this encounter Plan of Treatment Not on file documented as of this encounter Visit Diagnoses Diagnosis Other migraine without status migrainosus, not intractable documented in this encounter Additional Health Concerns Assessment Noted Time PHQ-9 Depression Total Score: 2 12/25/19 16 7:22 AM INSTRUMENT SPECIALIST documented as of this encounter Care Teams Vehicle Service Attendant Relationship Specialty Start Date End Date Simone Hamilton MD [address] [place] [address] PCP - General Internal Medicine 12/24/15 12/29/22 Faye Linares APRN CNP PCP - Assigned PCP 02/20/17 03/11/18 Simone Hamilton MD [address] [place] [address] PCP - Assigned PCP 03/12/18 04/18/18 Shala Washburn DO [address] [place] [address] PCP - General Family Practice 12/30/22 Simone Hamilton MD [address] [place] [address] Assigned PCP 03/19/18 01/29/22 Harjit Chappell DPM [address] [facility] [address] [place], [place] [address] Assigned Musculoskeletal Provider 12/07/19 05/31/20 [place] [address] [place] [address] Assigned OBGYN Provider 12/07/19 1 Alberto Purvis PA-C [address] [place] [address] Assigned Neuroscience Provider 07/27/20 12/13/20 [place] [address] [place] [id number] Assigned Neuroscience Provider 12/14/20 06/11/22 Nhan Byrd MD [address] [place] [place] [address] Assigned PCP 01/30/22 05/06/23 Simone Hamilton MD [address] [place] [place] [address] Assigned PCP 05/07/23 11/06/23 Nhan Byrd MD [address] [place] [address] Assigned PCP 11/07/23 documented as of this encounter
--- OUTSIDE RECORDS SUMMARY | 2024-08-25 10:05 | XMS_ITS | Encounter Summary ---
Author Organization [facility] Address [address] [place] [address] Care Team Providers Care Bag Worker Name Role Phone Simone Hamilton MD Primary Care Provid er Simone Hamilton MD Unavailable [phone] Harjit Chappell DPM Unavailable Rusty Massey MD Unavailable [phone] Alberto PurvisC Unavailable Beau Bertrand MD Unavailable [phone] Nhan Byrd MD Unavailable Shala Washburn DO Primary Care Provider Simone Hamilton MD Unavailable [phone] Nhan Byrd MD Unavailable Encounter Details Date Type Department Care Team (Late st Contact Info) Description 10/12/2018 MyC Medical Advice [facility] [address] [place] [address] Simone Hamilton MD [address] [place] [address] Social History Tobacco Use Types Packs/Day Years Used Date Smoking Tobacco: Former Cigarettes Q uit: 02/15/1996 Smokeless Tobacco: Never Comments:1997 Alcohol Use Standard Drinks/Week Comments Yes 0 (1 standard drink = 0.6 oz pur e alcohol) 2 drinks/wk PHQ-2 Answer Date Recorded PHQ-2 Score 0 02/21/2018 Comments No Sex and Gender Information Value Date Recorded Sex Assigned at Female 09/11/2020 9:06 AM CDT Legal Sex Female 3:25 AM LEAF STICKER Gender Identity Female 09/11/2020 9:06 AM CDT Sexual Orientation Straight 09/11/2020 9: 06 AM CDT 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 Not on file Not on file documented as of this encounter Plan of Treatment Not on file documented as of this encounter Visit Diagnoses Not on filedocumented in this encounter Additional Health Concerns Assessment Noted Time PHQ-9 Depression Total Score: 6 07/06/19 19 3:12 PM CDT documented as of this encounter Care Teams Bag Worker Relationship Specialty Start Date End Date Simone Hamilton MD [address] [place] [address] PCP - General Internal Medicine 12/24/15 12/29/22 Shala Washburn DO [address] [place] [address] PCP - General Family Practice 12/30/22 Simone Hamilton MD [address] [place], [place] [address] Assigned PCP 03/19/18 01/29/22 Harjit Chappell DPM [address] [facility] [address] [place], [place] [address] Assigned Musculoskeletal Provider 12/07/19 05/31/20 [place] [address] [place] [address] Assigned OBGYN Provider 12/07/19 6/ 1 Alberto Purvis PA-C [address] [place] [id number] Assigned Neuroscience Provider 07/27/20 12/13/20 [place] [address] [place], [place] [address] Assigned Neuroscience Provider 12/14/20 06/11/22 Nhan Byrd MD [address] [place] [address] Assigned PCP 01/30/22 05/06/23 Simone Hamilton MD [address] [place] [address] Assigned PCP 05/07/23 11/06/23 Nhan Byrd MD [address] [place] [address] Assigned PCP 11/07/23 documented as of this encounter
--- OUTSIDE RECORDS SUMMARY | 2024-08-25 10:05 | XMS_ITS | Encounter Summary ---
Author Organization [facility] Address [address] [place] [address] Care Team Providers Care Senior Major Gifts Officer Name Role Phone Simone Hamilton MD Primary Care Provid er Simone Hamilton MD Unavailable [phone] Alberto Purvis PA-C Unavailable [phone] Beau Bertrand MD Unavailable [phone] Nhan Byrd MD Unavailable Shala Washburn DO Primary Care Provider [phone] Simone Hamilton MD Unavailable [phone] Nhan Byrd MD Unavailable Reason for Referral * Consultation (Routine) - Closed Specialty Diagnoses / Procedures Referred By Carol t Referred To Contact Otolaryngology Diagnoses Sensation of plugged ear on both sides Simone Hamilton MD [address] [place] [address] Phone: tel: fax: [facility] [address] [place] [address] [address] [place] [address] Phone: tel: Referral ID Status Reason Start Date Expiration Date Visits Re quested Visits Authorized [id number] Closed 08/01/2020 08/01/2021 1 1 Comments Your provider has referred you to: [facility]: [facility] [email or web address] Please be aware that coverage of these services is subject to the terms and limitations of your health insurance plan. Call member services at your health plan with any benefit or coverage questions. Please bring the following with you to your appointment: (1) Any X-Rays, CTs or MRIs which have been performed. Contact the facility where they were done to arrange for pepper picker prior to your scheduled appointment. (2) List of current medications (3) This referral request (4) Any documents/labs given to you for this referral Encounter Details Date Type Department Care Team (Late st Contact Info) Description 08/01/2020 MyC Medical Advice [facility] [address] [facility] [address] [place] [address] Simone Hamilton MD [address] [facility] [place] [address] Sensation of plugged ear on both sides (Primary Dx) Social History Tobacco Use Types Packs/Day Years [...] AM CDT Legal Sex Female 3:25 AM BRAKE REPAIRER RAILROAD Gender Identity Female 09/11/2020 9:06 AM CDT Sexual Orientation Straight 09/11/2020 9: 06 AM CDT 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 No / Unsure 07/21/2020 2:18 PM CDT documented as of this encounter Miscellaneous Notes * Telephone Encounter - Astrid Byrd RN - 08/01/2020 3:53 PM CDT See her [employer] message. She is asking for ent referral. documented in this encounter Plan of Treatment Scheduled Referrals Name Type Priority Associated Diagnoses Orde r Schedule OTOLARYNGOLOGY REFERRAL Referral Routine Sensation of plugged ear on both sides Ordered: 08/01/2020 documented as of this encounter Visit Diagnoses Diagnosis Sensation of plugged ear on both sides- Primary documented in this encounter Additional Health Concerns Assessment Noted Time PHQ-9 Depression Total Score: 0 01/02/20 19 11:21 AM BRAKE REPAIRER RAILROAD documented as of this encounter Care Teams Senior Major Gifts Officer Relationship Specialty Start Date End Date Simone Hamilton MD [address] [place] [address] PCP - General Internal Medicine 12/24/15 12/29/22 Shala Washburn DO [address] [place] [address] PCP - General Family Practice 12/30/22 Simone Hamilton MD [address] [place] [address] Assigned PCP 03/19/18 01/29/22 Alberto Purvis PA-C [address] [place] [address] Assigned Neuroscience Provider 07/27/20 12/13/20 [place] [address] [address] [address] [address] [place] [address] Assigned Neuroscience Provider 12/14/20 06/11/22 Nhan Byrd MD [address] [place] [address] Assigned PCP 01/30/22 05/06/23 Simone Hamilton MD [address] [place] [address] Assigned PCP 05/07/23 11/06/23 Nhan Byrd MD [address] [place] [address] Assigned PCP 11/07/23 documented as of this encounter
--- OUTSIDE RECORDS SUMMARY | 2024-08-25 10:05 | XMS_ITS | Encounter Summary ---
Author Organization [facility] Address [address] [place] [address] Care Team Providers Care Motor Vehicle Salesperson Name Role Phone Simone Hamilton MD Primary Care Provid er Simone Hamilton MD Unavailable [phone] Harjit Chappell DPM Unavailable [phone] Rusty Massey MD Unavailable [phone] Alberto PurvisC Unavailable [phone] Beau Bertrand MD Unavailable Nhan Byrd MD Unavailable Shala Washburn DO Primary Care Provider [phone] Simone Hamilton MD Unavailable [phone] Nhan Byrd MD Unavailable Reason for Visit * Reason Onset Date Comments Refill Request 01/23/2019 Encounter Details Date Type Department Care Team (Late st Contact Info) Description 01/23/2019 [facility] [address] [place] [address] Simone Hamilton MD [address] [place] [address] Refill Request Social History Tobacco Use Types Packs/Day Years [...] AM CDT Legal Sex Female 3:25 AM FIELD ADJUSTER Gender Identity Female 09/11/2020 9:06 AM CDT Sexual Orientation Straight 09/11/2020 9: 06 AM CDT 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 PARoxetine (PAXIL) 10 MG tablet 135 tablet 1 Sig: Take 1.5 tablets (15 mg) by mouth every morning SSRIs Protocol Passed - 01/23/2019 4:05 PM Passed - Recent (12 mo) or future (30 days) visit within the authorizing provider's specialty Patient has had an office visit with the authorizing provider or a provider within the authorizing providers department within the previous 12 mos or has a future within next 30 days. See Patient Info tab in inbasket, or Choose Columns in Meds & Orders section of the refill encounter. Passed - Medication is active on med list Passed - Patient is age 18 or older Passed - No active on record Passed - No positive test in last 12 months D ADJUSTER documented in this encounter Plan of Treatment Not on file documented as of this encounter Visit Diagnoses Diagnosis PIPPA (generalized anxiety disorder) Generalized anxiety disorder documented in this encounter Additional Health Concerns Assessment Noted Time PHQ-9 Depression Total Score: 0 01/02/20 11:21 AM FIELD ADJUSTER documented as of this encounter Care Teams Motor Vehicle Salesperson Relationship Specialty Start Date End Date Simone Hamilton MD [address] [place] [address] PCP - General Internal Medicine 12/24/15 12/29/22 Shala Washburn DO [address] [place] [address] PCP - General Family Practice 12/30/22 Simone Hamilton MD [address] [place] [address] Assigned PCP 03/19/18 01/29/22 Harjit Chappell DPM [address] [facility] [address] [place] [address] Assigned Musculoskeletal Provider 12/07/19 05/31/20 [place] [address] [place] [address] Assigned OBGYN Provider 12/07/19 1 Alberto Purvis PA-C [address] [facility] [address] [address] Assigned Neuroscience Provider 07/27/20 12/13/20 [place] [address] [address] Assigned Neuroscience Provider 12/14/20 06/11/22 Nhan Byrd MD [address] [address] Assigned PCP 01/30/22 05/06/23 Simone Hamilton MD [address] [address] Assigned PCP 05/07/23 11/06/23 Nhan Byrd MD [address] [address] Assigned PCP 11/07/23 documented as of this encounter
--- OUTSIDE RECORDS SUMMARY | 2024-08-25 10:05 | XMS_ITS | Encounter Summary ---
Author Organization [facility] Address [address] [place] [address] Care Team Providers Care Any Commodity Sales Deliverer Name Role Phone Simone Hamilton MD Primary Care Provid er Beau Bertrand MD Unavailable Nhan Byrd MD Unavailable [phone] Shala Washburn DO Primary Care Provider Simone Hamilton MD Unavailable Nhan Byrd MD Unavailable [phone] Encounter Details Date Type Department Care Team (Late st Contact Info) Description 04/09/2022 [facility] [address] [address] [facility] Social History Tobacco Use Types Packs/Day Years Used Date Smoking Tobacco: Former Cigarettes 0.3 15 0 02/14/1981 - 02/15/1996 Smokeless Tobacco: Never Comments:1996 Alcohol Use Standard Drinks/Week Comments Yes 0 (1 standard drink = 0.6 oz pur e alcohol) 2 drinks/wk PHQ-2 Answer Date Recorded PHQ-2 Score 0 03/25/2022 Comments No Sex and Gender Information Value Date Recorded Sex Assigned at Female 09/11/2020 9:06 AM CDT 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 Gender Identity Female 09/11/2020 9:06 AM CDT [...] Noted Time PHQ-9 Depression Total Score: 2 10/03/19 21 7:03 AM CDT documented as of this encounter Care Teams Any Commodity Sales Deliverer Relationship Specialty Start Date End Date Simone Hamilton MD [address] [place] [address] PCP - General Internal Medicine 12/24/15 12/29/22 Shala Washburn DO [facility] [place] [address] PCP - General Family Practice 12/30/22 [place] [address] [place] [address] Assigned Neuroscience Provider 12/14/20 06/11/22 Nhan Byrd MD [address] [place] [address] Assigned PCP 01/30/22 05/06/23 Simone Hamilton MD [address] [place] [address] Assigned PCP 05/07/23 11/06/23 Nhan Byrd MD [address] [place] [address] Assigned PCP 11/07/23 documented as of this encounter
--- OUTSIDE RECORDS SUMMARY | 2024-08-25 10:05 | XMS_ITS | Encounter Summary ---
Author Organization [facility] Address [address] [place] [address] Care Team Providers Care Electric Mule Operator Name Role Phone Simone Hamilton MD Primary Care Provid er Beau Bertrand MD Unavailable Nhan Byrd MD Unavailable [phone] Shala Washburn DO Primary Care Provider Simone Hamilton MD Unavailable [phone] Nhan Byrd MD Unavailable [phone] Encounter Details Date Type Department Care Team (Late st Contact Info) Description 03/26/2022 [facility] [address] [address] Fatemeh Guerra Social History Tobacco Use Types Packs/Day Years [...] AM CDT 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 Gender Identity Female 09/11/2020 9:06 AM CDT [...] documented as of this encounter Care Teams Electric Mule Operator Relationship Specialty Start Date End Date Simone Hamilton MD [address] [place] [address] PCP - General Internal Medicine 12/24/15 12/29/22 Shala Washburn DO [facility] [place] [address] PCP - General Family Practice 12/30/22 [place] [address] [place] [address] Assigned Neuroscience Provider 12/14/20 06/11/22 Nhan Byrd MD [address] [place] [address] Assigned PCP 01/30/22 05/06/23 Simone Hamilton MD [address] [place] [address] Assigned PCP 05/07/23 11/06/23 Nhan Byrd MD [address] [address] Assigned PCP 11/07/23 documented as of this encounter
--- OUTSIDE RECORDS SUMMARY | 2024-08-25 10:05 | XMS_ITS | Encounter Summary ---
Author Organization [facility] [place] Address [address] [place] [address] Care Team Providers Care Safety Director Name Role Phone Simone Hamilton MD Primary Care Provid er Simone Hamilton MD Unavailable [phone] Harjit Chappell DPM Unavailable Rusty Massey MD Unavailable Alberto PurvisC Unavailable Beau Bertrand MD Unavailable [phone] Nhan Byrd MD Unavailable [phone] Shala Washburn DO Primary Care Provider [phone] Simone Hamilton MD Unavailable [phone] Nhan Byrd MD Unavailable Encounter Details Date Type Department Care Team (Late st Contact Info) Description 03/17/2020 [facility] Medical Advice [facility] [address] [place] [address] Simone Hamilton MD [address] [facility] [place] [address] Other insomnia Social History Tobacco Use Types Packs/Day Years [...] AM CDT 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 AGE CUTTER documented in this encounter Plan of Treatment Not on file documented as of this encounter Visit Diagnoses Diagnosis Other insomnia documented in this encounter Additional Health Concerns Assessment Noted Time PHQ-9 Depression Total Score: 0 01/02/20 19 11:21 AM SAUSAGE CUTTER documented as of this encounter Care Teams Safety Director Relationship Specialty Start Date End Date Simone Hamilton MD [address] [place] [address] PCP - General Internal Medicine 12/24/15 12/29/22 Shala Washburn DO [address] [place] [address] PCP - General Family Practice 12/30/22 Simone Hamilton MD [address] [place] [address] Assigned PCP 03/19/18 01/29/22 Harjit Chappell DPM [address] [facility] [address] [place] [address] Assigned Musculoskeletal Provider 12/07/19 05/31/20 [place] [address] [place] [address] Assigned OBGYN Provider 12/07/19 1 Alberto Purvis PA-C [address] [facility] [address] [place] [address] Assigned Neuroscience Provider 07/27/20 12/13/20 [place] [address] [place] [address] Assigned Neuroscience Provider 12/14/20 06/11/22 Nhan Byrd MD [address] [facility] [address] Assigned PCP 01/30/22 05/06/23 Simone Hamilton MD [address] [facility] [address] Assigned PCP 05/07/23 11/06/23 Nhan Byrd MD [address] [place] [address] Assigned PCP 11/07/23 documented as of this encounter
--- OUTSIDE RECORDS SUMMARY | 2024-08-25 10:05 | XMS_ITS | Encounter Summary ---
Author Organization [facility] Address [address] [place] [address] Care Team Providers Care Resin Mixer Name Role Phone Simone Hamilton MD Primary Care Provid er Simone Hamilton MD Unavailable Beau Bertrand MD Unavailable Nhan Byrd MD Unavailable Shala Washburn DO Primary Care Provider Simone Hamilton MD Unavailable Nhan Byrd MD Unavailable Reason for Visit * Reason Onset Date Comments Refill Request 02/20/2021 simvastatin (ZOC OR) 20 MG Encounter Details Date Type Department Care Team (Late st Contact Info) Description 02/20/2021 Refill [facility] [address] [place] [address] Simone Hamilton MD [address] [place] [address] Refill Request (simvastatin (ZOCOR) 20 MG) Social History Tobacco Use Types Packs/Day Years Used Date Smoking Tobacco: Former Cigarettes 0.3 15 0 02/14/1981 - 02/15/1996 Smokeless Tobacco: Never Comments:1996 Alcohol Use Standard Drinks/Week Comments Yes 0 (1 standard drink = 0.6 oz pur e alcohol) 2 drinks/wk PHQ-2 Answer Date Recorded PHQ-2 Score 3 10/01/2020 Comments No Sex and Gender Information Value Date Recorded Sex Assigned at Female 09/11/2020 9:06 AM CDT 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 Due for px around 10/01/21 BYTERIAN CLERGY documented in this encounter Plan of Treatment Not on file documented as of this encounter Visit Diagnoses Diagnosis Hyperlipidemia LDL goal <130 Other and unspecified hyperlipidemia documented in this encounter Additional Health Concerns Assessment Noted Time PHQ-9 Depression Total Score: 2 10/03/19 21 7:03 AM CDT documented as of this encounter Care Teams Resin Mixer Relationship Specialty Start Date End Date Simone Hamilton MD [address] [place] [address] PCP - General Internal Medicine 12/24/15 12/29/22 Shala Washburn DO [address] [place] [address] PCP - General Family Practice 12/30/22 Simone Hamilton MD [address] [place] [address] Assigned PCP 03/19/18 01/29/22 [place] [address] [place] [address] Assigned Neuroscience Provider 12/14/20 06/11/22 Nhan Byrd MD [address] [place] [address] Assigned PCP 01/30/22 05/06/23 Simone Hamilton MD [address] [place] [address] Assigned PCP 05/07/23 11/06/23 Nhan Byrd MD [address] [place] [address] Assigned PCP 11/07/23 documented as of this encounter
--- OUTSIDE RECORDS SUMMARY | 2024-08-25 10:05 | XMS_ITS | Clinical Summary ---
Author Organization [facility] Address [address] [place] [address] Care Team Providers Care Water Purifier Operator Name Role Phone Shala Washburn Primary Care Provider [phone] Nhan Byrd MD Unavailable [phone] Allergies Active Allergy Reactions Criticality Noted Date Comments Sertraline Hcl Headache,Diarrhea 05/02/2002 Medications DAILY MULTI VITAMIN/MINERAL S OR Take 2 tablets by mouth daily Active simvastatin (ZOCOR) 20 MG tabletIndicatio ns:Hyperlipidem ia LDL goal <130 1.5 tabs by mouth nightly 135 tablet 2 05/24/2022 Active traZODone (DESYREL) 50 MG tabletIndicatio ns:Other insomnia Take 1 tablet (50 mg) by mouth At Bedtime 90 tablet 06/28/2022 Active rOPINIRole (REQUIP) 0.5 MG tabletIndicatio ns:Restless legs syndrome Take 1 tablet (0.5 mg) by mouth At Bedtime 90 tablet 09/30/2022 Active PARoxetine (PAXIL) 10 MG tabletIndicatio ns:PIPPA (generalized anxiety disorder) Take 1 tablet (10 mg) by mouth every morning 90 tablet 12/24/2022 Active Active Problems Problem Noted Date Diagnosed Date Morbid obesity 10/12/2021 Meningioma 10/12/2021 Postmenopausal bleeding 11/27/2018 Thickened endometrium 11/27/2018 Crohn's disease without comp lication, unspecified gastrointestinal tract location 11/06/2018 Vitamin D deficiency 02/16/2017 PIPPA (generalized anxiety disorder) 12/24/2015 Restless legs syndrome 10/23/2014 Overview (10/23/2014): Takes Sinemet which provides her good relief Cervical high risk HPV (human papillomavirus) te st positive 11/14/2013 Overview (09/05/2019): 11/2013: NIL pap, + HPV. Plan cotest pap & HPV in 1 year 01/2015: NIL pap, neg HPV. Plan cotest pap & HPV in 3 years 03/08/16 NIL pap, neg HR HPV. Plan 3 year pap 03/08/18 NIL pap, neg HR HPV. Plan routine screening 08/27/19 NIL pap, Neg HPV. Plan cotest in 5 years. Hyperlipidemia LDL goal <130 07/27/2012 CARDIOVASCULAR SCREENING; LDL GOAL LESS THAN 160 12/14/2009 Palpitations 09/02/2005 Iron deficiency anemia Overview (12/16/2014): Diagnosis updated by automated process. Provider to review and confirm. Migraine without status migrainosus Overview (10/12/2016): often Resolved Problems Problem Noted Date Diagnosed Date Resolved Date Condyloma 04/24/2014 10/17/2014 Vulvar irritation 10/23/2013 04/22/2014 Excessive or frequent menstruation 07/29/2008 04/24/2014 Major depressive disorder, s [place] episode, mild 04/17/2003 08/20/2011 Migraine 10/12/2021 Mixed hyperlipidemia 022 Immunizations Immunization Administration Dates Next Due COVID-19 MONOVALENT 12+ (Pfizer) 09/12/2020,07/0 10/2020 Flu, Unspecified 12/03/1994 Hepatitis A (VAQTA)(ADULT 19+) 12/11/2018 Hepatitis B, Adult (Energix-B/Recombivax HB) 12/2018 Influenza Vaccine 18-64 (Flublok) 11/06/2018 Influenza Vaccine IM Ages 6-35 Months 4 Valent ( PF) 11/26/2015 Influenza,INJ,MDCK,PF,Quad >6mo(Flucelvax) 12/29 Pneumo Conj 13-V (2010&after) 12/25/2018 TD,PF 7+ (Tenivac) 04/15/2004 TDAP Vaccine (Adacel) 09/14/2017 Typhoid IM 12/11/2018 Family History Medical History Relation Comments Family History Negative Brother Genitourinary Problems Father prostate problem Other Cancer Maternal Grandmother stomach Family History Negative Mother Cancer Paternal Aunt cervical cancer Family History Negative Sister Breast Cancer No family hx of Cancer - colorectal No family hx of Ovarian Cancer No family hx of Relation Status Comments Brother Alive Daughter Alive Father Maternal Grandfather Maternal Grandmother (Age 86) Mother Alive Paternal Aunt Paternal Grandfather Paternal Grandmother Sister Alive Son Alive Social History Tobacco Use Types Packs/Day Years Used Date Smoking Tobacco: Former Cigarettes 0.3 15 0 02/14/1981 - 02/15/1996 Smokeless Tobacco: Never Tobacco Cessation:Counseling Given: No Comments:1996 Alcohol Use Standard Drinks/Week Comments Yes 0 (1 standard drink = 0.6 oz pur e alcohol) 2 drinks/wk PHQ-2 Answer Date Recorded PHQ-2 Score 0 03/25/2022 Adolescent Education Answer Date Record ed Getting School Help Needed Not on file 11/05 Comments No Sex and Gender Information Value Date Recorded Sex Assigned at Female 09/11/2020 9:06 AM CDT Legal Sex Female 3:25 AM ASSEMBLER TESTER Gender Identity Female 09/11/2020 9:06 AM CDT Sexual Orientation Straight 09/11/2020 9: 06 AM CDT 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 Not on file Not on file Last Filed Vital Signs Vital Sign Reading Time Taken Comments Blood Pressure 138/88 10/12/2021 12:06 PM CDT Pulse 70 10/12/2021 11:24 AM CDT Temperature 36.6 C (97.9 F) 10/12/2021 11:24 AM CDT Respiratory Rate 18 10/12/2021 11:24 AM CDT Oxygen Saturation 99% 10/12/2021 11:24 AM CDT Inhaled Oxygen Concentration - - Weight 95.7 kg (211 lb) 10/12/2021 11:24 AM CDT Height 165.1 cm (5' 5) 10/12/2021 11:24 AM CDT Body Mass Index 35.11 10/12/2021 11:24 AM CDT Plan of Treatment Health Maintenance Due Date Last Done Comments CT COLONOGRAPHY 1962 FIT 1962 FLEX SIG 1962 MIGRAINE ACTION PLAN 1962 sDNA (Cologuard) 1962 LUNG CANCER SCREENING 2012 ZOSTER VACCINE (1 of 2) 2012 PNEUMOCOCCAL VACCINE 50+ YEARS (2 of 2 - PPSV23) 12/26/2019 12/25/2018 HPV TEST 08/26/2022 08/27/2019, 02/15, 03/08/2016, Additional history exists PAP 08/26/2022 08/27/2019, 02/15, 03/08/2016, Additional history exists PIPPA ASSESSMENT 09/22/2022 03/25/2022, 09/15, 10/01/2020, Additional history exists ANNUAL REVIEW OF HM ORDERS 10/12/2022 10/12/2021 ADVANCE CARE PLANNING 10/20/2022 10/20/2017 (Decline d) LIPID 05/14/2023 05/13/2022, 09/15, 11/17/2020, Additional history exists COVID-19 VACCINE ( season) 2023 03/03/2021, 09/12/2020, 08/22/2020 YEARLY PREVENTIVE VISIT 11/18/2023 11/18/19, 10/12/2021, 10/01/2020, Additional history exists PHQ-2 (once per calendar year) 2024 03/25/2022, 10/12/2021, 10/01/2020, Additional history exists MAMMO SCREENING 06/28/2024 06/28/2022, 04/16, 04/11/2020, Additional history exists DIABETES SCREENING 10/12/2024 10/12/2021, 1 , 08/27/2019, Additional history exists INFLUENZA VACCINE (#1) 2024 , 12/29/2020, 11/06/2018, Additional history exists DTAP/TDAP/TD VACCINE (2 - Td or Tdap) 09/15/2027 09/14/2017, 04/15/2004 COLONOSCOPY 10/10/2028 10/10/2018, 01/15, 02/08/2014 COLORECTAL CANCER SCREENING 10/10/2028 RSV VACCINE (1 - 1-dose 75+ series) 2037 HEPATITIS C SCREENING Completed 02/16/2017 HIV SCREENING Completed 10/12/2021 HPV VACCINE Aged Out No longer eligi ble based on patient's age to complete this topic MENINGITIS VACCINE Aged Out No longer eligible based on patient's age to complete this topic Procedures Procedure Name Priority Date/Time Associated Diagnosis Comments MA SCREENING BILATERAL W/ CIPRIANO Routine 06/28/2022 1:22 PM CDT Screening mammogram for high-risk patient LIPID REFLEX TO DIRECT LDL PANEL Routine 05/13/2022 9:03 AM CDT Hyperlipidemia LDL goal <130 COMPREHENSIVE METABOLIC PANEL Routine 10/12/2021 12:00 PM CDT Hyperlipidemia LDL goal <130 HIV ANTIGEN ANTIBODY COMBO Routine 10/12/2021 12:00 PM CDT Screening for HIV (human immunodeficiency virus) PAP IMAGED THIN LAYER SCREEN Routine 08/27/2019 9:11 AM CDT Routine history and physical examination of adult HPV HIGH RISK TYPES DNA CERVICAL Routine 08/27/2019 7:55 AM CDT Routine history and physical examination of adult COLONOSCOPY - HIM SCAN 10/10/2018 12:00 AM CDT HEPATITIS C SCREEN REFLEX TO HCV RNA QUANT AND GENOTYPE Routine 02/16/2017 11:33 AM ASSEMBLER TESTER Healthcare maintenance from Last 3 Months or Most Recently Relevant to Health Maintenance Results * MA Screen Bilateral w/Cipriano (06/28/2022 1:22 PM CDT) Anatomical Region Laterality Modality Breast Bilateral Mammography Impressions 06/28/2022 2:37 PM CDT IMPRESSION: ACR BI-RADS Category 1: Negative RECOMMENDED FOLLOW-UP: Annual routine screening mammogram The results and recommendations of this examination will be communicated to the patient. Hema Jo MD Narrative 06/28/2022 2:37 PM CDT BILATERAL FULL FIELD DIGITAL SCREENING MAMMOGRAM WITH TOMOSYNTHESIS Performed on: 06/28/22 Compared to: 05/13/2021 and 02/21/2017 Technique: This study was evaluated with the assistance of Computer-Aided Detection. Breast Tomosynthesis was used in interpretation. Findings: The breasts have scattered areas of fibroglandular density. There is no radiographic evidence of malignancy. Simone Bennett MD [facility] [place] Final Result * (ABNORMAL) Lipid panel reflex to direct LDL Fasting (05/13/2022 9:03 AM CDT) Cholesterol 207(H) <200 mg/dL 05/13/2022 10:00 PM CDT [facility] Triglycerides 173(H) <150 mg/dL 05/13/2022 10:00 PM CDT [facility] Direct Measure HDL 46(L) >=50 mg/dL 05/13/2022 10:00 PM CDT [facility] LDL Cholesterol Calculated 126(H) <=100 mg/dL 05/13/2022 10:00 PM CDT [facility] Non HDL Cholesterol 161(H) <130 mg/dL 05/13/2022 10:00 PM CDT [facility] Blood BLOOD SPECIMEN / Unknown Venipuncture / Unknown 05/13/2022 9:03 AM CDT 05/13/2022 9:03 AM CDT Narrative [facility] - 05/13/2022 10:00 PM CDT Cholesterol Desirable: <200 mg/dL Triglycerides Normal: Less than 150 mg/dL Borderline High: 150-199 mg/dL High: 200-499 mg/dL Very High: Greater than or equal to 500 mg/dL Direct Measure HDL Female: Greater than or equal to 50 mg/dL Male: Greater than or equal to 40 mg/dL LDL Cholesterol Desirable: <100mg/dL Above Desirable: 100-129 mg/dL Borderline High: 130-159 mg/dL High: 160-189 mg/dL Very High: >= 190 mg/dL Non HDL Cholesterol Desirable: 130 mg/dL Above Desirable: 130-159 mg/dL Borderline High: 160-189 mg/dL High: 190-219 mg/dL Very High: Greater than or equal to 220 mg/dL Simone Bennett MD LAB - BLOOD ORDERABL ES Final Result [facility] [address] [facility] [address], [address] [address], [facility] [phone] * HIV Antigen Antibody Combo (10/12/2021 12:00 PM CDT) HIV Antigen Antibody Combo Nonreactive Nonreactive 10/13/2021 10:14 AM CDT SPECIALTY CORE/PROT/EN DO Comment:HIV-1 p24 Ag & HIV-1 /HIV-2 Ab Not Detected Blood STRUCTURE OF LEFT UPPER LIMB / Unknown Venipuncture / Unknown 10/12/2021 12:00 PM CDT 10/12/2021 12:00 PM CDT Nhan Byrd MD LAB - BLOOD ORDERABLES F inal Result Performing Organization Address City/[facility]/ZIP Co de Phone Number SPECIALTY CORE/PROT/ENDO Specialty Core/Prot/Endo [address] [facility] [address] [facility], [address] [address], [facility] [phone] * (ABNORMAL) Comprehensive metabolic panel (BMP + Alb, Alk Phos, ALT, AST, Total. Bili, TP) (10/12/2021 12:00 PM CDT) Sodium 141 133 - 144 mmol/L 10/13/2021 11:15 AM CDT [facility] Potassium 3.7 3.4 - 5.3 mmol/L 10/13/2021 11:15 AM CDT [facility] Chloride 110(H) 94 - 109 mmol/L 10/13/2021 11:15 AM CDT [facility] Carbon Dioxide (CO2) 23 20 - 32 mmol/L 10/13/2021 11:15 AM CDT [facility] Anion Gap 8 3 - 14 mmol/L 10/13/2021 11:15 AM CDT [facility] Urea Nitrogen 13 7 - 30 mg/dL 10/13/2021 11:15 AM CDT [facility] Creatinine 0.66 0.52 - 1.04 mg/dL 10/13/2021 11:15 AM CDT [facility] Calcium 8.9 8.5 - 10.1 mg/dL 10/13/2021 11:15 AM CDT [facility] Glucose 82 70 - 99 mg/dL 10/13/2021 11:15 AM CDT [facility] Alkaline Phosphatase 61 40 - 150 U/L 10/13/2021 11:15 AM CDT [facility] AST 21 0 - 45 U/L 10/13/2021 11:15 AM CDT [facility] ALT 28 0 - 50 U/L 10/13/2021 11:15 AM CDT [facility] Protein Total 6.4(L) 6.8 - 8.8 g/dL 10/13/2021 11:15 AM CDT [facility] Albumin 3.5 3.4 - 5.0 g/dL 10/13/2021 11:15 AM CDT [facility] Bilirubin Total 0.5 0.2 - 1.3 mg/dL 10/13/2021 11:15 AM CDT [facility] GFR Estimate >90 >60 mL/min/1.7 3m2 10/13/2021 11:15 AM CDT [facility] Comment:Effective January 152020 eGFRcr in adults is calculated using the 2020 CKD-EPI creatinine equation which includes age and gender (Fabiana et al., NEJM, DOI: 10.1056/JHABzz4277620) Blood STRUCTURE OF LEFT UPPER LIMB / Unknown Venipuncture / Unknown 10/12/2021 12:00 PM CDT 10/12/2021 12:00 PM CDT us Nhan Byrd MD LAB - BLOOD ORDERABLES F inal Result [facility] [address] Lab (no room number, 1st floor of clinic) [place] [address], [facility] [phone] * Pap imaged thin layer screen with HPV - recommended age 30 - 65 years (select HPV order below) (08/27/2019 9:11 AM CDT) PAP NIL COPATH Copath Report Patient Name: ASTRID HERNÁNDEZ MR#: [id number] Specimen #: [id number] Collected: 08/27/2019 Received: 08/28/2019 Reported: 08/30/2019 08:27 Ordering Phy(s): SIMONE BENNETT For improved result formatting, select 'View Enhanced Report Format' under Linked Documents section. SPECIMEN/STAIN PROCESS: Pap imaged thin layer prep screening (Surepath, FocalPoint with guided screening) Pap-Cyto x 1 SOURCE: Cervical, endocervical Pap imaged thin layer prep screening (Surepath, FocalPoint with guided screening) SPECIMEN ADEQUACY: Satisfactory for evaluation. -Transformation zone component present. CYTOLOGIC INTERPRETATION: Negative for intraepithelial lesion or malignancy Electronically signed out by: ZEE Darby (ASCP) CLINICAL HISTORY: Papanicolaou Test Limitations: Cervical cytology is a screening test with limited sensitivity; regular screening is critical for cancer prevention; Pap tests are primarily effective for the diagnosis/preventi on of squamous cell carcinoma, not adenocarcinomas or other cancers. COLLECTION SITE: Client: [facility] Location: [facility] () The technical component of this testing was completed at the [facility], with the professional component performed at the [facility], [address] [place] [phone] ([phone]) COPATH Cytologic material (specimen) 08/27/2019 9:11 AM CDT 08/28/2019 7:36 AM CDT us Simone Bennett MD LAB - OPTIME CLINICA L SPECIMEN Final Result COPATH * HPV High Risk Types DNA Cervical (08/27/2019 7:55 AM CDT) HPV Source SurePath 09/03/2019 1:11 PM CDT [facility] HPV 16 DNA Negative NEG^Nega tive 09/05/2019 3:23 PM CDT [facility] HPV 18 DNA Negative NEG^Nega tive 09/05/2019 3:23 PM CDT [facility] Other HR HPV Negative NEG^Nega tive 09/05/2019 3:23 PM CDT [facility] Final Diagnosis This patient's sample is negative for HPV DNA. 09/05/2019 3:23 PM CDT [facility] Comment: This test was developed and its performance characteristics determined by the [facility], Molecular Diagnostics Laboratory. It has not been cleared or approved by the FDA. The laboratory is regulated under CLIA as qualified to perform high-complexity testing. This test is used for clinical purposes. It should not be regarded as investigational or for research. (Note) METHODOLOGY: The Yoselyn raimundo 4800 system uses automated extraction, simultaneous amplification of HPV (L1 region) and beta-globin, followed by real time detection of fluorescent labeled HPV and beta globin using specific oligonucleotide probes . The test specifically identifies types HPV 16 DNA and HPV 18 DNA while concurrently detecting the rest of the high risk types (31, 33, 35, 39, 45, 51, 52, 56, 58, 59, 66 or 68). COMMENTS: This test is not intended for use as a screening device for women under age 30 with normal cervical cytology. Results should be correlated with cytologic and histologic findings. Close clinical followup is recommended. Specimen Description Cervical Cells 09/03/2019 1:11 PM CDT [facility] Comment:[id number] Cervical Cells CERVIX UTERI STRUCTURE / Unknown 08/27/2019 7:55 AM CDT 09/03/2019 1:26 PM CDT us Simone Bennett MD LAB - BLOOD ORDERABL ES Final Result [facility] [address] [place] [address] [facility] [address] [facility] [address] [place] [address] * COLONOSCOPY - HIM SCAN (10/10/2018 12:00 AM CDT) 10/10/2018 us Provider Outside PROCEDURES Final Result * Hepatitis C Screen Reflex to HCV RNA Quant and Genotype (02/16/2017 11:33 AM ASSEMBLER TESTER) Hepatitis C Antibody Nonreactive NR^Nonre active 02/17/2017 1:[address] [facility] Comment: Assay performance characteristics have not been established for newborns, infants, and children Blood specimen (specimen) 02/16/2017 11:33 AM ASSEMBLER TESTER 02/16/2017 11:34 AM ASSEMBLER TESTER us Faye Linares NEONATAL NURSE FABRICATION TECHNICIAN LAB - BLOOD ORDERAB LES Final Result Performing Organization Address City/State/[facility] Co de Phone Number [address] from Last 3 Months or Most Recently Relevant to Health Maintenance Insurance OUT OF STATE Care Teams Water Purifier Operator Relationship Specialty Start Date End Date Shala Washburn [place] [address] PCP - General Family Practice 12/30/22 Nhan Byrd MD [address] [place] [address] Assigned PCP 11/07/23
--- OUTSIDE RECORDS SUMMARY | 2024-08-25 10:05 | XMS_ITS | Encounter Summary ---
Author Organization [place] Address [address] [place] [address] Care Team Providers Care Sheetmetal Patternmaker Name Role Phone Simone Hamilton MD Primary Care Provid er Simone Hamilton MD Unavailable [phone] Harjit Chappell DPM Unavailable Rusty Massey MD Unavailable Alberto PurvisC Unavailable Beau Bertrand MD Unavailable Nhan Byrd MD Unavailable [phone] Shala Washburn DO Primary Care Provider Simone Hamilton MD Unavailable [phone] Nhan Byrd MD Unavailable Reason for Visit * Reason Onset Date Comments MyChart Communication 12/28/2019 Encounter Details Date Type Department Care Team (Late st Contact Info) Description 12/28/2019 MyC Medical Advice [facility] [address] [place] [address] Simone Hamilton MD [address] [place] [address] MyChart Communication Social History Tobacco Use Types [...] AM CDT Legal Sex Female 3:25 AM MASTIC MAN Gender Identity Female 09/11/2020 9:06 AM CDT Sexual Orientation Straight 09/11/2020 9: 06 AM CDT 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 IC MAN documented in this encounter Plan of Treatment Not on file documented as of this encounter Results * (ABNORMAL) Varicella Zoster Virus Antibody IgG (01/23/2020 4:10 PM MASTIC MAN) Varicella Zoster Virus Antibody IgG 2.5(H) 0.0 - 0.8 AI 01/24/2020 3:40 PM MASTIC MAN [facility] Comment: Positive, suggests prev. exposure and probable immunity Antibody index (AI) values reflect qualitative changes in antibody concentration that cannot be directly associated with clinical condition or disease state. Blood specimen (specimen) 01/23/2020 4:10 PM MASTIC MAN 01/23/2020 4:11 PM MASTIC MAN us Simone Hamilton MD LAB - BLOOD ORDERABL ES Final Result [facility] [address] [place] [address] documented in this encounter Visit Diagnoses Diagnosis Screening for viral disease- Primary Special screening examination for unspecified viral disease documented in this encounter Additional Health Concerns Assessment Noted Time PHQ-9 Depression Total Score: 0 01/02/20 19 11:21 AM MASTIC MAN documented as of this encounter Care Teams Sheetmetal Patternmaker Relationship Specialty Start Date End Date Simone Hamilton MD [address] [place] [address] PCP - General Internal Medicine 12/24/15 12/29/22 Shala Washburn DO [address] [place] [address] PCP - General Family Practice 12/30/22 Simone Hamilton MD [address] [place] [address] Assigned PCP 03/19/18 01/29/22 Harjit Chappell DPM [id number] [address] Assigned Musculoskeletal Provider 12/07/19 05/31/20 [place] [address] [place] [address] Assigned OBGYN Provider 12/07/19 1 Alberto Purvis PA-C [address] [place] [address] Assigned Neuroscience Provider 07/27/20 12/13/20 [place] [address] [facility] [address] [place] [address] Assigned Neuroscience Provider 12/14/20 06/11/22 Nhan Byrd MD [address] [place] [address] Assigned PCP 01/30/22 05/06/23 Simone Hamilton MD [address] [place] [address] Assigned PCP 05/07/23 11/06/23 Nhan Byrd MD [address] [place] [address] Assigned PCP 11/07/23 documented as of this encounter
--- OUTSIDE RECORDS SUMMARY | 2024-08-25 10:05 | XMS_ITS | Encounter Summary ---
Author Organization [facility] Address [address] [place] [address] Care Team Providers Care Electronics Engineering Manager Name Role Phone Simone Hamilton MD Primary Care Provid er Simone Hamilton MD Unavailable [phone] Alberto Purvis PA-C Unavailable [phone] Beau Bertrand MD Unavailable Nhan Byrd MD Unavailable Shala Washburn DO Primary Care Provider Simone Hamilton MD Unavailable [phone] Nhan Byrd MD Unavailable Encounter Details Date Type Department Care Team (Late st Contact Info) Description 11/21/2020 MyC Medical Advice [facility] [address] [place] [address] [place] [address] Simone Hamilton MD [address] [place] [address] Claustrophobia (Primary Dx) Social History Tobacco Use Types [...] AM CDT Legal Sex Female 3:25 AM ECONOMIC FORECASTER Gender Identity Female 09/11/2020 9:06 AM CDT Sexual Orientation Straight 09/11/2020 9: 06 AM CDT 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 No / Unsure 11/17/2020 9:11 AM CDT documented as of this encounter Miscellaneous Notes * Telephone Encounter - Shruthi Naidu RN - 11/21/2020 12:15 PM CDT Appointment cancelled. documented in this encounter Plan of Treatment Not on file documented as of this encounter Visit Diagnoses Diagnosis Claustrophobia- Primary Other isolated or specific phobias documented in this encounter Additional Health Concerns Assessment Noted Time PHQ-9 Depression Total Score: 2 10/03/19 21 7:03 AM CDT documented as of this encounter Care Teams Electronics Engineering Manager Relationship Specialty Start Date End Date Simone Hamilton MD [address] [place] [address] PCP - General Internal Medicine 12/24/15 12/29/22 Shala Washburn DO [address] [place] [address] PCP - General Family Practice 12/30/22 Simone Hamilton MD [address] [place] [address] Assigned PCP 03/19/18 01/29/22 Alberto Purvis PA-C [address] [place], [place] [address] Assigned Neuroscience Provider 07/27/20 12/13/20 [place] [address] [id number] Assigned Neuroscience Provider 12/14/20 06/11/22 Nhan Byrd MD [address] [id number] Assigned PCP 01/30/22 05/06/23 Simone Hamilton MD [address] [address] Assigned PCP 05/07/23 11/06/23 Nhan Byrd MD [address] [address] Assigned PCP 11/07/23 documented as of this encounter
--- OUTSIDE RECORDS SUMMARY | 2024-08-25 10:05 | XMS_ITS | Encounter Summary ---
Author Organization [facility] Address [address] [place] [address] Care Team Providers Care Salvage Laborer Name Role Phone Simone Hamilton MD Primary Care Provid er Simone Hamilton MD Unavailable [phone] Harjit Chappell DPM Unavailable Rusty Massey MD Unavailable Alberto Purvis-C Unavailable Beau Bertrand MD Unavailable Nhan Byrd MD Unavailable Shala Washburn DO Primary Care Provider [phone] Simone Hamilton MD Unavailable [phone] Nhan Byrd MD Unavailable [phone] Reason for Visit * Reason Onset Date Comments Refill Request 10/09/2018 r OPINIRole (REQUIP) 0.5 MG tablet Encounter Details Date Type Department Care Team (Late st Contact Info) Description 10/09/2018 Refill [place] [address] [place] [address] Simone Hamilton MD [address] [place] [address] Refill Request ( r OPINIRole (REQUIP) 0.5 MG tablet) Social History Tobacco Use Types Packs/Day Years [...] AM CDT Legal Sex Female 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 rOPINIRole (REQUIP) 0.5 MG tablet Last Written Prescription Date: 07/11/2018 Last Fill Quantity: 90, # refills: 0 Last office visit: 07/05/2018 with prescribing provider: Future Office Visit: 90 tablet 0 Sig: Take 1 tablet (0.5 mg) by mouth At Bedtime Antiparkinson's Agents Protocol Failed - 10/09/2018 11:40 AM Failed - CBC on record in past 12 months Recent Labs Lab Test 03/08/18 1324 02/16/17 1133 WBC -- 5.4 RBC -- 5.18 HGB 13.2 13.7 HCT -- 42.4 PLT -- 213 Passed - Blood pressure under 140/90 in past 12 months BP Readings from Last 3 Encounters: 08/28/18 120/76 07/05/18 122/80 06/26/18 106/86 Passed - ALT on record in past 12 months Recent Labs Lab Test 03/08/18 1324 ALT 55* Passed - Serum Creatinine on file in past 12 months Recent Labs Lab Test 03/08/18 1324 CR 0.69 Passed - Medication is active on med list Passed - Patient is age 18 or older Passed - No active on record Passed - No positive test in the past 12 months Passed - Recent (6 mo) or future (30 days) visit within the authorizing provider's specialty Patient had office visit in the last 6 months or has a visit in the next 30 days with authorizing provider or within the authorizing provider's specialty. See Patient Info tab in inbasket, or Choose Columns in Meds & Orders section of the refill encounter. documented in this encounter Plan of Treatment Not on file documented as of this encounter Visit Diagnoses Diagnosis Restless legs syndrome Restless legs syndrome (RLS) documented in this encounter Additional Health Concerns Assessment Noted Time PHQ-9 Depression Total Score: 6 07/06/19 19 3:12 PM CDT documented as of this encounter Care Teams Salvage Laborer Relationship Specialty Start Date End Date Simone Hamilton MD [address] [place] [address] PCP - General Internal Medicine 12/24/15 12/29/22 Shala Washburn DO [address] [place] [address] PCP - General Family Practice 12/30/22 Simone Hamilton MD [address] [place] [address] Assigned PCP 03/19/18 01/29/22 Harjit Chappell DPM [address] [facility] [address] [place], [place] [address] Assigned Musculoskeletal Provider 12/07/19 05/31/20 [place] [address] [place] [address] Assigned OBGYN Provider 12/07/19 1 Alberto Purvis PA-C [address] [facility] [address] [place] [address] Assigned Neuroscience Provider 07/27/20 12/13/20 [place] [address] [facility] [address] [place], [place] [address] Assigned Neuroscience Provider 12/14/20 06/11/22 Nhan Byrd MD [address] [place] [address] Assigned PCP 01/30/22 05/06/23 Simone Hamilton MD [address] [place] [address] Assigned PCP 05/07/23 11/06/23 Nhan Byrd MD [address] [place] [address] Assigned PCP 11/07/23 documented as of this encounter
--- OUTSIDE RECORDS SUMMARY | 2024-08-25 10:05 | XMS_ITS | Encounter Summary ---
Author Organization [facility] Address [address] [place] [address] Care Team Providers Care Business Objects Consultant Name Role Phone Simone Hamilton MD Primary Care Provid er Simone Hamilton MD Unavailable [phone] Harjit Chappell DPM Unavailable Rusty Massey MD Unavailable Alberto PurvisC Unavailable [phone] Beau Bertrand MD Unavailable Nhan Byrd MD Unavailable [phone] Shala Washburn DO Primary Care Provider Simone Hamilton MD Unavailable [phone] Nhan Byrd MD Unavailable Encounter Details Date Type Department Care Team (Late st Contact Info) Description 11/26/2019 MyC Medical Advice [facility] [address] [place] [address] Simone Hamilton MD [address] [facility] [place] [address] Social History Tobacco Use Types [...] AM CDT Legal Sex Female 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 No / Unsure 11/12/2019 3:52 PM CDT documented as of this encounter Plan of Treatment Not on file documented as of this encounter Visit Diagnoses Not on filedocumented in this encounter Additional Health Concerns Assessment Noted Time PHQ-9 Depression Total Score: 0 01/02/20 19 11:21 AM NEWSPAPER CLIPPER documented as of this encounter Care Teams Business Objects Consultant Relationship Specialty Start Date End Date Simone Hamilton MD [address] [place] [address] PCP - General Internal Medicine 12/24/15 12/29/22 Shala Washburn DO [address] [place] [address] PCP - General Family Practice 12/30/22 Simone Hamilton MD [address] [place] [address] Assigned PCP 03/19/18 01/29/22 Harjit Chappell DPM [address] [facility] [address] [place], [place] [address] Assigned Musculoskeletal Provider 12/07/19 05/31/20 [place] [address] [place] [address] Assigned OBGYN Provider 12/07/19 1 Alberto Purvis PA-C [address] [facility] [address] [place] [address] Assigned Neuroscience Provider 07/27/20 12/13/20 [place] [address] [address] [facility] [address] [place] [employer], [place] [address] Assigned Neuroscience Provider 12/14/20 06/11/22 Nhan Byrd MD [address] [place] [address] Assigned PCP 01/30/22 05/06/23 Simone Hamilton MD [address] [place] [address] Assigned PCP 05/07/23 11/06/23 Nhan Byrd MD [address] [place] [address] Assigned PCP 11/07/23 documented as of this encounter
--- OUTSIDE RECORDS SUMMARY | 2024-08-25 10:05 | XMS_ITS | Encounter Summary ---
Author Organization [facility] Address [address] [place] [address] Care Team Providers Care Auto Vinyl Top Installer Name Role Phone Simone Hamilton MD Primary Care Provid er Simone Hamilton MD Unavailable [phone] Alberto Purvis PA-C Unavailable Beau Bertrand MD Unavailable [phone] Nhan Byrd MD Unavailable Shala Washburn DO Primary Care Provider [phone] Simone Hamilton MD Unavailable [phone] Nhan Byrd MD Unavailable Encounter Details Date Type Department Care Team (Late st Contact Info) Description 08/20/2020 MyC Medical Advice [facility] [address] [place] [address] Simone Hamilton MD [address] [place] [address] Social History Tobacco Use Types [...] AM CDT Legal Sex Female 3:25 AM MEDICAL OFFICE 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 INSTRUCTOR Gender Identity Female 09/11/2020 9:06 AM CDT [...] Total Score: 0 01/02/20 19 11:21 AM MEDICAL OFFICE TECHNOLOGY INSTRUCTOR documented as of this encounter Care Teams Auto Vinyl Top Installer Relationship Specialty Start Date End Date Simone Hamilton MD [address] [place] [address] PCP - General Internal Medicine 12/24/15 12/29/22 Shala Washburn DO [address] [place] [place] [address] PCP - General Family Practice 12/30/22 Simone Hamilton MD [address] [place] [address] Assigned PCP 03/19/18 01/29/22 Alberto Purvis PA-C [address] [place] [address] Assigned Neuroscience Provider 07/27/20 12/13/20 [place] [address] [address] [address] Assigned Neuroscience Provider 12/14/20 06/11/22 Nhan Byrd MD [address] [facility] [place] [address] Assigned PCP 01/30/22 05/06/23 Simone Hamilton MD [address] [facility] [place] [address] Assigned PCP 05/07/23 11/06/23 Nhan Byrd MD [address] [place] [address] Assigned PCP 11/07/23 documented as of this encounter
--- OUTSIDE RECORDS SUMMARY | 2024-08-25 10:05 | XMS_ITS | Encounter Summary ---
Author Organization [facility] Address [address] [place] [address] Care Team Providers Care Chief Diversity Officer Name Role Phone Simone Hamilton MD Primary Care Provid er Faye Linares APRN SODIUM CHLORITE OPERATOR Unavailable Un available Simone Hamilton MD Unavailable + [phone] Simone Hamilton MD Unavailable [phone] Harjit ChappellM Unavailable Rusty Massey MD Unavailable [phone] Alberto Purvis PA-C Unavailable Beau Bertrand MD Unavailable Nhan Byrd MD Unavailable Shala Washburn DO Primary Care Provider [phone] Simone Hamilton MD Unavailable [phone] Nhan Byrd MD Unavailable [phone] Reason for Visit * Reason Onset Date Comments Refill Request 11/30/2017 Lorazepam Encounter Details Date Type Department Care Team (Late st Contact Info) Description 11/30/2017 [facility] [place] [address] [place] [address] Simone Hamilton MD [address] [place] [address] Refill Request (Lorazepam) Social History Tobacco Use Types Packs/Day Years Used Date Smoking Tobacco: Former Cigarettes Q uit: 02/15/1996 Smokeless Tobacco: Never Comments:1996 Alcohol Use Standard Drinks/Week Comments Yes 0 (1 standard drink = 0.6 oz pur e alcohol) 2 drinks/wk Comments No Sex and Gender Information Value Date Recorded Sex Assigned at Female 09/11/2020 9:06 AM CDT Legal Sex Female 3:25 AM WEIGHTS AND 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 INSPECTOR Gender Identity Female 09/11/2020 9:06 AM CDT Sexual Orientation Straight 09/11/2020 9: 06 AM CDT 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 Requested Prescriptions Pending Prescriptions Disp Refills ??? LORazepam (ATIVAN) 1 MG tablet Last Written Prescription Date: 08/18/17 Last Fill Quantity: 10, # refills: 0 Last office visit: 10/20/2017 with prescribing provider: No Future Office Visit: 10 tablet 0 Sig: Take 0.5-1 tablets (0.5-1 mg) by mouth nightly as needed for anxiety There is no refill protocol information for this order Routing refill request to provider for review/approval because: Drug not on the [facility] refill protocol documented in this encounter Plan of Treatment Not on file documented as of this encounter Visit Diagnoses Diagnosis Anxiety Anxiety state, unspecified documented in this encounter Additional Health Concerns Assessment Noted Time PHQ-9 Depression Total Score: 2 12/25/19 16 7:22 AM WEIGHTS AND MEASURES INSPECTOR documented as of this encounter Care Teams Chief Diversity Officer Relationship Specialty Start Date End Date Simone Hamilton MD [address] [place] [address] PCP - General Internal Medicine 12/24/15 12/29/22 Faye Linares APRN SODIUM CHLORITE OPERATOR PCP - Assigned PCP 02/20/17 03/11/18 Simone Hamilton MD [address] [place] [address] PCP - Assigned PCP 03/12/18 04/18/18 Shala Washburn DO [address] [place] [address] PCP - General Family Practice 12/30/22 Simone Hamilton MD [address] [place] [address] Assigned PCP 03/19/18 01/29/22 Harjit Chappell DPM [id number] [place] [address] Assigned Musculoskeletal Provider 12/07/19 05/31/20 [place] [address] [place] [address] Assigned OBGYN Provider 12/07/19 1 Alberto Purvis PA-C [address] [place], [place] [address] Assigned Neuroscience Provider 07/27/20 12/13/20 [place] [address] [address] [place], [place] [address] Assigned Neuroscience Provider 12/14/20 06/11/22 Nhan Byrd MD [address] [place] [address] Assigned PCP 01/30/22 05/06/23 Simone Hamilton MD [address] [place] [address] Assigned PCP 05/07/23 11/06/23 Nhan Byrd MD [address] [place] [address] Assigned PCP 11/07/23 documented as of this encounter
--- OUTSIDE RECORDS SUMMARY | 2024-08-25 10:05 | XMS_ITS | Encounter Summary ---
Author Organization [facility] Address [address] [place] [address] Care Team Providers Care Circulation Clerk Name Role Phone Simone Hamilton MD Primary Care Provid er Faye Linares APRN HEMATOLOGY NURSE Unavailable Un available Simone Hamilton MD Unavailable [phone] Simone Hamilton MD Unavailable [phone] Harjit Chappell DPM Unavailable Rusty Massey MD Unavailable [phone] Alberto Purvis PA-C Unavailable [phone] Beau Bertrand MD Unavailable Nhan Byrd MD Unavailable Shala Washburn DO Primary Care Provider [phone] Simone Hamilton MD Unavailable [phone] Nhan Byrd MD Unavailable [phone] Reason for Visit * Reason Comments Medication Refill paxil Encounter Details Date Type Department Care Team (Late st Contact Info) Description 04/25/2017 [place] [address] [place] [address] Simone Hamilton MD [address] [place] [address] Medication Refill (paxil) Social History Tobacco Use Types Packs/Day Years Used Date Smoking Tobacco: Former Cigarettes Q uit: 02/15/1996 Smokeless Tobacco: Never Comments:1996 Alcohol Use Standard Drinks/Week Comments Yes 0 (1 standard drink = 0.6 oz pur e alcohol) 2 drinks/wk Comments No Sex and Gender Information Value Date Recorded Sex Assigned at Female 09/11/2020 9:06 AM CDT Legal Sex Female 3:25 AM BOTTOM BLEACHER Gender Identity Female 09/11/2020 9:06 AM CDT Sexual Orientation Straight 09/11/2020 9: 06 AM CDT 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 PARoxetine (PAXIL) 10 MG tablet [Pharmacy Med Name: PAROXETINE HCL TABS 10MG] 90 tablet 0 Sig: TAKE 1 TABLET EVERY MORNING (NO MORE REFILLS AFTER THIS, DUE FOR APPOINTMENT) SSRIs Protocol Passed 04/25/2017 12:09 AM Passed - Recent (12 mo) or future (30 days) visit within the authorizing provider's specialty Patient had office visit in the last 12 months or has a visit in the next 30 days with authorizing provider or within the authorizing provider's specialty. See Patient Info tab in inbasket, or Choose Columns in Meds & Orders section of the refill encounter. Passed - Patient is age 18 or older Passed - No active on record Passed - No positive test in last 12 months Routing refill request to provider for review/approval because: Drug interaction warning Please advise, thanks. documented in this encounter Plan of Treatment Not on file documented as of this encounter Visit Diagnoses Diagnosis PIPPA (generalized anxiety disorder) Generalized anxiety disorder documented in this encounter Additional Health Concerns Assessment Noted Time PHQ-9 Depression Total Score: 2 12/25/19 16 7:22 AM BOTTOM BLEACHER documented as of this encounter Care Teams Circulation Clerk Relationship Specialty Start Date End Date Simone Hamilton MD [address] [place] [address] PCP - General Internal Medicine 12/24/15 12/29/22 Faye Linares APRN HEMATOLOGY NURSE PCP - Assigned PCP 02/20/17 03/11/18 Simone Hamilton MD [address] [place] [address] PCP - Assigned PCP 03/12/18 04/18/18 Shala Washburn DO [address] [place] [address] PCP - General Family Practice 12/30/22 Simone Hamilton MD [address] [place] [address] Assigned PCP 03/19/18 01/29/22 Harjit Chappell DPM [address] [address] Assigned Musculoskeletal Provider 12/07/19 05/31/20 [place] [address] [place] [address] Assigned OBGYN Provider 12/07/19 1 Alberto Purvis PA-C [address] [facility] [address] [place] [address] Assigned Neuroscience Provider 07/27/20 12/13/20 [place] [address] [address] [address] Assigned Neuroscience Provider 12/14/20 06/11/22 Nhan Byrd MD [address] [address] Assigned PCP 01/30/22 05/06/23 Simone Hamilton MD [address] [address] Assigned PCP 05/07/23 11/06/23 Nhan Byrd MD [address] [address] Assigned PCP 11/07/23 documented as of this encounter
--- OUTSIDE RECORDS SUMMARY | 2024-08-25 10:05 | XMS_ITS | Encounter Summary ---
Author Organization [facility] Address [address] [place] [address] Care Team Providers Care Turn Out Name Role Phone Simone Hamilton MD Primary Care Provid er Faye Linares APRN GLOBAL HEAD ADVERTISER SOLUTIONS Unavailable Un available Simone Hamilton MD Unavailable + [phone] Simone Hamilton MD Unavailable [phone] Harjit Chappell DPM Unavailable [phone] Rusty Massey MD Unavailable [phone] Alberto Purvis PA-C Unavailable Beau Bertrand MD Unavailable Nhan Byrd MD Unavailable [phone] Shala Washburn DO Primary Care Provider Simone Hamilton MD Unavailable [phone] Nhan Byrd MD Unavailable Encounter Details Date Type Department Care Team (Late st Contact Info) Description 01/11/2017 MyC Medical Advice [address] [place] [address] Joan Anthony, RN Social History Tobacco Use Types Packs/Day Years Used Date Smoking Tobacco: Former Cigarettes Q uit: 02/15/1996 Smokeless Tobacco: Never Comments:1996 Alcohol Use Standard Drinks/Week Comments Yes 0 (1 standard drink = 0.6 oz pur e alcohol) 2 drinks/wk Comments No Sex and Gender Information Value Date Recorded Sex Assigned at Female 09/11/2020 9:06 AM CDT Legal Sex Female 3:25 AM BONDED STRAND OPERATOR Gender Identity Female 09/11/2020 9:06 AM [...] Total Score: 2 12/25/19 16 7:22 AM BONDED STRAND OPERATOR documented as of this encounter Care Teams Turn Out Relationship Specialty Start Date End Date Simone Hamilton MD [address] [place] [address] PCP - General Internal Medicine 12/24/15 12/29/22 Faye Linares APRN CNP PCP - Assigned PCP 02/20/17 03/11/18 Simone Hamilton MD [address] [place] [address] PCP - Assigned PCP 03/12/18 04/18/18 Shala Washburn DO [address] [place] [address] PCP - General Family Practice 12/30/22 Simone Hamilton MD [address] [place] [address] Assigned PCP 03/19/18 01/29/22 Harjit Chappell DPM [address] [facility] [place] [address] [place] [address] Assigned Musculoskeletal Provider 12/07/19 05/31/20 [place] [address] [place] [address] Assigned OBGYN Provider 12/07/19 1 Alberto Purvis PA-C [address] [facility] [address] [place] [address] Assigned Neuroscience Provider 07/27/20 12/13/20 [place] [address] [place] [address] Assigned Neuroscience Provider 12/14/20 06/11/22 Nhan Byrd MD [address] [facility] [place] [address] Assigned PCP 01/30/22 05/06/23 Simone Hamilton MD [address] [facility] [address] Assigned PCP 05/07/23 11/06/23 Nhan Byrd MD [address] [place] [address] Assigned PCP 11/07/23 documented as of this encounter
--- OUTSIDE RECORDS SUMMARY | 2024-08-25 10:05 | XMS_ITS | Encounter Summary ---
Author Organization [facility] Address [address] [place] [address] Care Team Providers Care Car Dispatcher Name Role Phone Simone Hamilton MD Primary Care Provid er Simone Hamilton MD Unavailable [phone] Harjit Chappell DPM Unavailable Rusty Massey MD Unavailable Alberto PurvisC Unavailable [phone] Beau Bertrand MD Unavailable Nhan Byrd MD Unavailable Shala Washburn DO Primary Care Provider [phone] Simone Hamilton MD Unavailable [phone] Nhan Byrd MD Unavailable Encounter Details Date Type Department Care Team (Late st Contact Info) Description 01/27/2020 MyC Medical Advice [facility] [address] [place] [address] Simone Hamilton MD [address] [facility] [place] [address] Social History Tobacco Use Types [...] AM CDT Legal Sex Female 3:25 AM LEARNING SUPPORT RESOURCE ROOM TEACHER Gender Identity Female 09/11/2020 9:06 AM CDT Sexual Orientation Straight 09/11/2020 9: 06 AM CDT 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 No / Unsure 01/23/2020 4:05 PM LEARNING SUPPORT RESOURCE ROOM TEACHER documented as of this encounter Plan of Treatment Not on file documented as of this encounter Visit Diagnoses Not on filedocumented in this encounter Additional Health Concerns Assessment Noted Time PHQ-9 Depression Total Score: 0 01/02/20 19 11:21 AM LEARNING SUPPORT RESOURCE ROOM TEACHER documented as of this encounter Care Teams Car Dispatcher Relationship Specialty Start Date End Date Simone Hamilton MD [address] [place] [address] PCP - General Internal Medicine 12/24/15 12/29/22 Shala Washburn DO [address] [place] [address] PCP - General Family Practice 12/30/22 Simone Hamilton MD [address] [place] [address] Assigned PCP 03/19/18 01/29/22 [place] [address] [facility] [address] [place], [place] [address] Assigned Musculoskeletal Provider 12/07/19 05/31/20 [place] [address] [place] [address] Assigned OBGYN Provider 12/07/19 1 Alberto Purvis PA-C [address] [facility] [address] [place] [address] Assigned Neuroscience Provider 07/27/20 12/13/20 [place] [address] [place] [facility] [address] [place], [place] [address] Assigned Neuroscience Provider 12/14/20 06/11/22 Nhan Byrd MD [address] [place] [address] Assigned PCP 01/30/22 05/06/23 Simone Hamilton MD [address] [place] [address] Assigned PCP 05/07/23 11/06/23 Nhan Byrd MD [address] [place] [address] Assigned PCP 11/07/23 documented as of this encounter
--- OUTSIDE RECORDS SUMMARY | 2024-08-25 10:05 | XMS_ITS | Encounter Summary ---
Author Organization [facility] Address [address] [place] [id number] Care Team Providers Care Neon Sign Maker Name Role Phone Simone Hamilton MD Primary Care Provid er Simone Hamilton MD Unavailable [phone] Rusty Massey MD Unavailable Alberto Purvis PA-C Unavailable [phone] Beau Bertrand MD Unavailable Nhan Byrd MD Unavailable Shala Washburn DO Primary Care Provider [phone] Simone Hamilton MD Unavailable [phone] Nhan Byrd MD Unavailable [phone] Reason for Referral * Diagnostic Imaging CT Scan (Routine) - Closed Specialty Diagnoses / Procedures Referred By Carol t Referred To Contact Radiology. Diagnoses Nonintractable headache, unspecified chronicity pattern, unspecified headache type Procedures CT Head w/o Contrast Simone Hamilton MD [address] [place] [address] Phone: tel: fax: [facility] [address] [facility] [address] [place] [address] Phone: tel: fax: Referral ID Status Reason Start Date Expiration Date Visits Re quested Visits Authorized [id number] Closed 07/01/2020 07/01/2021 1 1 Reason for Visit * Reason Onset Date Comments Patient Request 07/01/2020 Encounter Details Date Type Department Care Team (Late st Contact Info) Description 07/01/2020 MyC Medical Advice [facility] [address] [place] [address] Simone Hamilton MD [address] [place] [address] Patient Request Social History Tobacco Use Types Packs/Day [...] AM CDT Legal 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 No / Unsure 06/25/2020 8:22 AM CDT documented as of this encounter Miscellaneous Notes * Telephone Encounter - Astrid Byrd RN - 07/01/2020 4:26 PM CDT Sent message back. * Telephone Encounter - Simone Hamilton MD - 07/01/2020 3:54 PM CDT I have ordered CT head to rule out any intracranial etiology for headache, please advise patient nallely [phone] to schedule an appointment. We cannot put a stat request unless it is emergency, please advise patient to keep appt with [facility] on 07/23/20, * Telephone Encounter - Astrid Byrd RN - 07/01/2020 11:55 AM CDT See her [employer] message. She also has appt with [facility] on 07/23 but she states this is not soon enough. Already faxed referral to [facility], so would need a new referral to say Stat. documented in this encounter Plan of Treatment Not on file documented as of this encounter Results * CT Head w/o Contrast (07/08/2020 3:16 PM CDT) Anatomical Region Laterality Modality Head, SUBRAD CT NEURO, SUBRA D CT NEURO, UMP CT NEURO, RAD CT Computed Tomography Impressions 07/08/2020 7:25 PM CDT IMPRESSION: 1. 13.0 x 11.4 mm largely calcified dural based lesion overlying the left frontal convexity consistent with a meningioma. 2. Six-month follow-up with a contrast-enhanced head MRI is recommended. 3. No intra-axial abnormality. Radiation dose for this scan was reduced using automated exposure control, adjustment of the mA and/or kV according to patient size, or iterative reconstruction technique AYO MCKAY MD Narrative 07/08/2020 7:[address] OF THE HEAD WITHOUT CONTRAST 07/08/2020 3:16 PM COMPARISON: None HISTORY: Headache TECHNIQUE: Axial CT images of the head from the skull base to the vertex were acquired without IV contrast. FINDINGS: INTRACRANIAL CONTENTS: No intracranial hemorrhage. 13.0 x 11.4 mm largely calcified dural based lesion overlying the left frontal convexity adjacent to the superior sagittal sinus. It is consistent with a meningioma. Normal intra-axial density. No hydrocephalus. VISUALIZED ORBITS/SINUSES/MASTOIDS: No significant orbital abnormality. No significant paranasal sinus mucosal disease. No significant middle ear or mastoid effusion. OSSEOUS STRUCTURES/SOFT TISSUES: No significant abnormality. Procedure Note Ayo Mckay MD - 07/08/2020 CT OF THE HEAD WITHOUT CONTRAST 07/08/2020 3:16 PM COMPARISON: None HISTORY: Headache TECHNIQUE: Axial CT images of the head from the skull base to the vertex were acquired without IV contrast. FINDINGS: INTRACRANIAL CONTENTS: No intracranial hemorrhage. 13.0 x 11.4 mm largely calcified dural based lesion overlying the left frontal convexity adjacent to the superior sagittal sinus. It is consistent with a meningioma. Normal intra-axial density. No hydrocephalus. VISUALIZED ORBITS/SINUSES/MASTOIDS: No significant orbital abnormality. No significant paranasal sinus mucosal disease. No significant middle ear or mastoid effusion. OSSEOUS STRUCTURES/SOFT TISSUES: No significant abnormality. IMPRESSION: 1. 13.0 x 11.4 mm largely calcified dural based lesion overlying the left frontal convexity consistent with a meningioma. 2. Six-month follow-up with a contrast-enhanced head MRI is recommended. 3. No intra-axial abnormality. 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 documented as of this encounter Care Teams Neon Sign Maker Relationship Specialty Start Date End Date Simone Hamilton MD [address] [place] [address] PCP - General Internal Medicine 12/24/15 12/29/22 Shala Washburn DO [address] [place] [address] PCP - General Family Practice 12/30/22 Simone Hamilton MD [address] [place] [address] Assigned PCP 03/19/18 01/29/22 [place] [address] [place] [address] Assigned OBGYN Provider 12/07/19 1 Alberto Purvis PA-C [address] [facility] [address] [place], [place] [address] Assigned Neuroscience Provider 07/27/20 12/13/20 [place] [address] [place], [place] [address] Assigned Neuroscience Provider 12/14/20 06/11/22 Nhan Byrd MD [address] [place] [address] Assigned PCP 01/30/22 05/06/23 Simone Hamilton MD [address] [place] [address] Assigned PCP 05/07/23 11/06/23 Nhan Byrd MD [address] [place] [address] Assigned PCP 11/07/23 documented as of this encounter
[2024-08-25 10:14] VITALS: BP 165/107; PULSE 104; RESP 16; TEMP 37; O2SAT 96; BMI 34.4
--- NOTE | 2024-08-25 10:39 | CRLHL7_ITS ---
For Patients: As a result of the Century Cures Act, medical imaging exams and procedure reports are released immediately into your electronic medical record. You may view this report before your referring provider. If you have questions, please contact your health care provider. INDICATION: Left throat pain and swelling. TECHNIQUE: CT of the neck soft tissues performed with IV contrast. Contrast: 102 cc Isovue 370. COMPARISON: None available at this institution. FINDINGS: There is a 2.5 x 2.7 (TR x AP) hyperenhancing masslike lesion identified in the region of the left palatine tonsil. This extends to slightly infiltrate the parapharyngeal space on the left. No drainable collection identified. Thickening of the soft palate and uvula. Inflammatory changes are seen surrounding the left submandibular gland. There is thickening of the platysma. Scattered enlarged left level 2 B lymph nodes, measuring up to 1.8 cm. The bilateral parotid and submandibular glands appear unremarkable. The visualized major vascular structures appear intact. The visualized intracranial components appear grossly intact. Visualized orbits and contents appear unremarkable. The paranasal sinuses are clear as visualized. Nonspecific wedge-shaped opacity may represent atelectasis within the left upper lobe. Mild spondylosis of the cervical spine. IMPRESSION: 1. Hyperdense masslike lesion centered at the left palatine tonsil, infiltrating the parapharyngeal space. Findings could represent tonsillitis, however given hyperdense masslike appearance an underlying neoplasm can not be fully excluded and direct inspection is recommended. 2. Infiltrating edema throughout the left oropharynx, parapharyngeal space and into the submandibular region. Inflammatory change surrounding the left submandibular gland with thickening of the platysma. Findings could represent infectious pharyngitis/cellulitis. No drainable fluid collection present. 3. Nonspecific enlarged left cervical chain lymph nodes, most notably level 2b. These may be reactive to an infectious/inflammatory process however should be assessed at follow-up given appearance of the palatine tonsil lymphadenopathy associated with neoplasm should be considered. Please note that all CT scans at this facility use dose modulation, iterative reconstruction, and/or weight-based dosing when appropriate to reduce radiation dose to as low as reasonably achievable. Dictated by Reginald Yo MD @ 08/25/2024 12:01:09 PM (Electronically Signed)
[2024-08-25 10:40] VITALS: O2SAT 94
[2024-08-25 10:47] LABS: Hematocrit 45.3 % (33.0-51.0); Hemoglobin* 14.8 gm/dL (12.0-16.0); Immature Granulocytes Abs Auto 0.01 K/uL (0.00-0.30); Immature Granulocytes Pct Auto 0.1 %; Mean Corpuscular HGB Conc 33 gm/dL (32-36); Mean Corpuscular Hemoglobin 29 pg (26-34); Mean Corpuscular Volume 88 fL (80-100); RDW Coefficient of Variation % 12.2 % (11.5-15.5); Red Blood Count 5.17 m/uL (4.00-5.20); White Blood Count* 9.61 K/uL (4.50-11.00)
[2024-08-25 10:53] LABS: Lymphocytes Absolute Auto 1.50 K/uL (0.90-2.90); Slide Review Reflex No
[2024-08-25 11:04] LABS: Chloride* 107 mmol/L (96-114)
--- NOTE | 2024-08-25 11:04 | ED.GENADULT ---
HPI - General Adult General Time Seen by Provider: 11:05 Date Seen: 08/25/24 Chief complaint: Skin/Abscess/Foreign Body Stated complaint: Abcess on left side of face Time Seen by Provider: 08/25/24 11:04 Source: patient and RN notes reviewed Mode of arrival: ambulatory Limitations: no limitations History of Present Illness HPI narrative: This 63-year-old female is referred to us from urgent care with concern of possible peritonsillar abscess. She started with a sore throat on Tuesday, left to travel to [facility] on Tuesday. Her throat was sore enough that she went to an urgent care there on Tuesday, tested negative for strep. They did state it could be mono but that would be too early to test. They thought it was viral. She continues to have significant pain, left worse than right but her whole throat is sore. She states she can no longer eat or drink much due to pain with swallowing. She is having no difficulty breathing. She denies any other respiratory symptoms with this, no nasal symptoms, no cough. She has not noted any fevers or chills. She has been doing salt water gargles. She has been doing Tylenol, has taken 2 doses of ibuprofen, 1 yesterday and 1 this morning. Ibuprofen typically does bother her stomach. She has a history remotely presumed para tonsillar abscess that started to drain on its own in her 20s. She was seen, started on antibiotics and referred to ENT. She states by the time she went to ENT they noted that it was draining on its own. She denies any chronic medical issues. She has had 3 pregnancies delivered vaginally without any reported complications. As far as surgeries, she has had an ovarian cyst requiring ovary removal. She denies any complications with anesthesia. Remote minimal smoking history over 30 years ago. Related Data Home Medications ?Medication ?Instructions ?Recorded ?Confirmed paroxetine HCl 10 mg tablet 10 mg PO DAILY 08/25/24 08/25/24 ropinirole 0.5 mg tablet mg PO 08/25/24 08/25/24 simvastatin 20 mg tablet 30 mg PO 08/25/24 08/25/24 trazodone 50 mg tablet 50 mg PO QPM 08/25/24 08/25/24 Allergies Allergy/AdvReac Type Severity Reaction Status Date / Time No Known Drug Allergies Allergy Verified 07/12/25 11:24 Review of Systems Status of ROS: Reports: 6 or more systems reviewed and unremarkable except as noted in History and below [facility] Social History Smoking Status: Former smoker How often do you have a drink containing alcohol: 4 or more times a week How many standard drinks containing alcohol do you have on a typical day: 1 or 2 How often do you have six or more drinks on one occasion: Never AUDIT-C Alcohol total score: 4 Non-prescribed substance use: denies use Exam Const: Vital Signs, click to edit/add: Vital Signs - 24 hr 08/25/24 10:14 08/25/24 10:40 08/25/24 11:15 Temperature 98.6 F Pulse Rate [Pulse Oximeter] 104 H 104 H Respiratory Rate 16 Blood Pressure [Ri ght Upper Arm] 165/107 H Pulse Oximetry 96 94 94 Oxygen Delivery Me thod Room Air Room Air 08/25/24 11:45 08/25/24 13:59 Temperature 98.1 F Pulse Rate [Pulse Oximeter] 105 H 119 H Respiratory Rate 16 20 Blood Pressure [Ri ght Upper Arm] 153/116 H 169/113 H Pulse Oximetry 96 97 Oxygen Delivery Me thod Room Air Room Air This 63-year-old female is alert, interactive, no apparent distress and seen in exam room 2. She is able to speak in complete sentences but does have a muffling noted to her voice. She is in no distress speaking, can complete sentences. Pupils equal round reactive, sq clear, face atraumatic and symmetric without any swelling. She is able to open her mouth, maybe mild sense of trismus but still can open completely. Posterior pharynx is not visualized due to tonsillar erythema and swelling, uvula is edematous and swollen. There is small area between the tonsillar sidewalls in the uvula that you can see some space between the tissues. Neck is supple, no significant adenopathy or tenderness, no masses noted. Lungs are clear, good air entry, no wheezing or crackles, no tachypnea, no accessory muscle use. CV regular rate and rhythm, no murmur. Skin visualized without any rash. Documenting provider has reviewed patient's vital signs: yes Course Course ED Course: Patient did have IV started on arrival and basic blood work drawn appropriately per nursing staff. Have discussed pain management with this patient, will have a dose of fentanyl, try a Zofran for premedications to avoid any nausea. Will give her some IV fluids. Do agree that she needs soft tissue CT of her neck with IV contrast to rule out peritonsillar abscess. I have also discussed with her that 1 of the current strength of COVID is causing severe sore throat. I do think we should test for COVID. She had a negative strep earlier at an urgent care, do not feel it is necessary to test for this. Will have appropriate lab work. Will do a mono spot. She could likely need IV antibiotics and will definitely consider this pending the outcome of the CT and her labs. Reevaluation(s) Time of Reevaluation #1: 11:59 Reevaluation #1: Did look at patient's CT, do see significant soft tissue swelling particularly along the left side. Her epiglottis does not appear affected but do see that the soft tissues down into the of loculated area maybe involved. Will initiate IV Zosyn 3.375 mg IV and [address] is currently in viewing status. Time of Reevaluation #2: 13:35 Reevaluation #2: Let patient know that we are waiting to hear back from [facility]. They did actually call when I was in talking to her and her daughter whom is a nurse. Patient's voice actually does sound improved, she clinically feels improved. Our ENT Dr. Massey has been in contact with me multiple times over the course of her stay here, he really feels she would be best suited for transfer, agrees that this is the safest for the patient. She is in agreement to transfer for further evaluation and management but absolutely does not want prophylactic intubation at this time. I would hope that I will be able to talk to any receiving institution and that we can hold off on intubation. I will keep her updated but do agree that her voice actually sounds better. I did show them some of the CT images of the pharyngeal, hypopharyngeal swelling and edema. We do not see an abscess at this time. Consultations Consultation #1: Did speak with ENT on-call Dr. Massey, he agrees with transfer. Will talk to patient and see if she has any preference. If receiving institution would want intubation prophylactically prior to transfer, we are to call him back in he will come down to standby. Did review this with patient and her whom is now in her room. She is stating that she wants to go home and just use antibiotics. I have reviewed with her that this is against medical advice. I have impressed upon her the seriousness of this situation, the potential for loss of airway, consideration for prophylactic intubation. I do think she will likely transfer but just need some time to digest information I have given her. She does not seem to be clinically worsening. She is receiving her antibiotic. Her is wanting her to stay and transfer. We discussed possible organizations for transfer, they would prefer [facility], I will go try to see if I can get this arranged. Time: 12:12 Consultation #2: Did speak with IRMA Farmer from [facility] transfer center. She will await CT images and reach out to ENT. 1:43 p.m.: Have spoken with Dr. Riley from ENT at [facility]. She feels that the care we are giving is appropriate, felt that perhaps patient could be managed here. I reviewed with her that we do not have a hospitalists overnight in the facility, ENT he is not here either. We do transfer all of these cases where there could be significant concern for airway compromise. She accepted the patient to [facility] in [place], Dr. Barajas will be accepting on behalf of the ED. Patient, her daughter and patient's were all updated. Her muffled voice certainly does seem better. She states she feels a bit better. Nonetheless, feel it is in patient's best interest and safety to have further evaluation at [facility]. If she has significantly improved by that time, they certainly can manage discharge or disposition. Time: 12:21 Vital Signs Vital signs: Initial Vital Signs Temperature 98.6 F 08/25/24 10:14 Temperature Source Temporal Artery Scan 08/25/24 10:14 Pulse Rate 104 H 08/25/24 10:14 Respiratory Rate 16 08/25/24 10:14 Blood Pressure 165/107 H 08/25/24 10:14 Blood Pressure Mean 126 H 08/25/24 10:14 Blood Pressure Position Sitting 08/25/24 10:14 Pulse Oximetry 96 08/25/24 10:14 Oxygen Delivery Method Room Air 08/25/24 10:14 Vital Signs Temperature 98.6 F 08/25/24 10:14 Pulse Rate 104 H 08/25/24 10:14 Respiratory Rate 16 08/25/24 10:14 Blood Pressure 165/107 H 08/25/24 10:14 Pulse Oximetry 96 08/25/24 10:14 Oxygen Delivery Method Room Air 08/25/24 10:14 Temperature 98.1 F 08/25/24 13:59 Pulse Rate 119 H 08/25/24 13:59 Respiratory Rate 20 08/25/24 13:59 Blood Pressure 169/113 H 08/25/24 13:59 Pulse Oximetry 97 08/25/24 13:59 Oxygen Delivery Method Room Air 08/25/24 13:59 Medications Administered Medications: Discontinued Medications Generic Name Dose Route Start Last Admin Trade Name Rossq PRN Reason Stop Dose Admin Dexamethasone 10 mg 08/25/24 11:59 08/25/24 12:06 Dexamethasone 10 Mg/Ml Pf IVP 08/25/24 12:00 10 mg ONCE ONE Administration Fentanyl 25 mcg 08/25/24 11:15 08/25/24 11:40 Fentanyl 100 Mcg/2 Ml Inj IVP 08/25/24 11:16 25 mcg ONCE ONE Administration Sodium Chloride 1,000 mls @ 500 mls/hr 08/25/24 11:16 08/25/24 13:45 0.9 % Sodium Chloride 1000 Ml IV 08/25/24 13:15 Infused .Q2H RUPAL Infusion Piperacillin Sod/Tazobactam 100 mls @ 200 mls/hr 08/25/24 11:59 08/25/24 12:45 Sod 3.375 gm/ Sodium Chloride IVPB 08/25/24 12:00 Infused ONCE ONE Infusion Lactated Ringer's 1,000 mls @ 125 mls/hr 08/25/24 14:15 08/25/24 14:17 Lactated Ringers 1000 Ml IV 125 mls/hr .Q8H RUPAL Administration Ondansetron HCl 4 mg 08/25/24 11:26 08/25/24 11:40 Ondansetron 2 Mg/Ml Inj IVP 08/25/24 11:27 4 mg ONCE ONE Administration Medical Decision Making Lab Data Labs: Lab Results 08/25/24 08/25/24 08/25/24 Range/Units 10:40 11:15 11:16 WBC 9.61 (4.50-11.00) K/uL RBC 5.17 (4.00-5.20) m/uL Hgb 14.8 (12.0-16.0) gm/dL Hct 45.3 (33.0-51.0) % MCV 88 (80-100) fL MCH 29 (26-34) pg MCHC 33 (32-36) gm/dL RDW Coeff of Leonel 12.2 (11.5-15.5) % Plt Count 195 (140-440) K/uL Neut % (Auto) 75.6 H (42.0-72.0) % Lymph % (Auto) 15.2 L (20-44) % [place]ia % (Auto) 7.7 (0.0-11.0) % Eos % (Auto) 1.2 (0.0-7.0) % Baso % (Auto) 0.2 (0.0-3.0) % Neut # (Auto) 7.30 H (1.7-7.0) K/uL Lymph # (Auto) 1.50 (0.90-2.90) K/uL Concordia # (Auto) 0.70 (0.00-0.90) K/UL Eos # (Auto) 0.12 (0.00-0.50) K/uL Baso # (Auto) 0.02 (0.00-0.30) K/uL Abs Immat Gran (auto) 0.01 (0.00-0.30) K/uL Imm/Tot Granulo (auto) 0.1 % Sodium 142 (135-149) mmol/L Potassium 3.5 L (3.6-5.1) mmol/L Chloride 107 (96-114) mmol/L Carbon Dioxide 28 (20-32) mmol/L Anion Gap 7 (7-15) mEq/L BUN 10 (7-30) mg/dL Creatinine 0.6 (0.5-1.5) mg/dL Estimated Creat Clear 53.16 Estimated GFR 102 ml/min Glucose 109 (60-115) mg/dL Calcium 9.8 (8.4-10.6) mg/dL C-Reactive Protein 3.1 H (0.5-1.0) mg/dL SARS-CoV-2 (PCR) Negative SARS-CoV-2 (Negative) Monoscreen Negative (Negative) Lab Acknowledgement Test Added Imaging Data CT- Other: Attestation: I have reviewed the pertinent imaging results. My impression: Did visualize, see course. Radiologist's impression: Patient: YU BARCENAS Facility:?[facility] Patient ID:?[id number] Site Patient ID:?[id number]. Site :?[id number] Study:?CT-ST Neck WITH 102 CC ISOVUE 370-08/25/2024 11:30:49 AM Ordering Physician:Annabelle Dunn Final Report: INDICATION: Left throat pain and swelling. TECHNIQUE: CT of the neck soft tissues performed with IV contrast. Contrast: 102 cc Isovue 370. COMPARISON: None available at this institution. FINDINGS: There is a 2.5 x 2.7 (TR x AP) hyperenhancing masslike lesion identified in the region of the left palatine tonsil. This extends to slightly infiltrate the parapharyngeal space on the left. No drainable collection identified. Thickening of the soft palate and uvula. Inflammatory changes are seen surrounding the left submandibular gland. There is thickening of the platysma. Scattered enlarged left level 2 B lymph nodes, measuring up to 1.8 cm. The bilateral parotid and submandibular glands appear unremarkable. The visualized major vascular structures appear intact. The visualized intracranial components appear grossly intact. Visualized orbits and contents appear unremarkable. The paranasal sinuses are clear as visualized. Nonspecific wedge-shaped opacity may represent atelectasis within the left upper lobe. Mild spondylosis of the cervical spine. IMPRESSION: 1. Hyperdense masslike lesion centered at the left palatine tonsil, infiltrating the parapharyngeal space. Findings could represent tonsillitis, however given hyperdense masslike appearance an underlying neoplasm can not be fully excluded and direct inspection is recommended. 2. Infiltrating edema throughout the left oropharynx, parapharyngeal space and into the submandibular region. Inflammatory change surrounding the left submandibular gland with thickening of the platysma. Findings could represent infectious pharyngitis/cellulitis. No drainable fluid collection present. 3. Nonspecific enlarged left cervical chain lymph nodes, most notably level 2b. These may be reactive to an infectious/inflammatory process however should be assessed at follow-up given appearance of the palatine tonsil lymphadenopathy associated with neoplasm should be considered. Please note that all CT scans at this facility use dose modulation, iterative reconstruction, and/or weight-based dosing when appropriate to reduce radiation dose to as low as reasonably achievable. Dictated by Reginald Yo MD @ 08/25/2024 12:01:09 PM (Electronic Signature) Discharge Plan Discharge Clinical Impression: Acute tonsillitis, Cellulitis of pharynx Patient Disposition: [facility] Condition: Improved Prescriptions: No Action paroxetine HCl 10 mg tablet 10 mg PO DAILY trazodone 50 mg tablet 50 mg PO QPM simvastatin 20 mg tablet 30 mg PO ropinirole 0.5 mg tablet PO Stand Alone Forms: [employer] Info Instructions
[2024-08-25 11:05] LABS: Potassium* 3.5 mmol/L (3.6-5.1); Sodium* 142 mmol/L (135-149)
[2024-08-25 11:07] LABS: Blood Urea Nitrogen* 10 mg/dL (7-30); Creatinine* 0.6 mg/dL (0.5-1.5); Est. Creatinine Clearance* 53.16; Estimated Glomerular Filt Rate 102 ml/min
[2024-08-25 11:08] LABS: Anion Gap 7 mEq/L (7-15); Calcium* 9.8 mg/dL (8.4-10.6); Carbon Dioxide* 28 mmol/L (20-32); Glucose* 109 mg/dL (60-115)
[2024-08-25 11:15] VITALS: PULSE 104; O2SAT 94
[2024-08-25 11:33] LABS: Mono Screen* Negative (Negative)
[2024-08-25] MEDS: ONDANSETRON 2 MG/ML inj 4 MG IVP (11:40)
[2024-08-25 11:45] VITALS: BP 153/116; PULSE 105; RESP 16; O2SAT 96
[2024-08-25] MEDS: DEXAMETHASONE 10 MG/ML PF IVP (12:06)
[2024-08-25] MEDS: PIPERACILLIN/TAZOBACTAM 3.375 GM in 0.9 % SODIUM CHLORIDE Mini-bag 100 ML IVPB (12:14)
[2024-08-25 12:20] LABS: SARS PCR* Negative SARS-CoV-2 (Negative)
[2024-08-25 13:59] VITALS: BP 169/113; PULSE 119; RESP 20; TEMP 36.7; O2SAT 97
[2024-08-25] MEDS: LACTATED RINGERS 1000 ML 1,000 ML 125 ML IV (14:17)
== END 2024-08-25 14:31 | disposition short-term general hospital (02) ==
PROVIDERS: Emergency Provider Family Medicine
DX: J03.90 Acute tonsillitis, unspecified (principal); J38.7 Other diseases of larynx; Z87.891 Personal history of nicotine dependence
CPT/HCPCS: 36415; 70491; 80048; 85025; 86140; 86308; 87635; 94761; 96365; 96375; 99285; J1100; J2405; J2543; J3010; J7030; J7120; Q9967

== ENCOUNTER 2024-08-25 14:28 | Outpatient (CLI) | payer BC, SELFPAY | END 2024-08-25 14:29 | disposition home or self-care (01) | PROVIDERS: Visit Provider Emergency Medicine | DX: J03.90 Acute tonsillitis, unspecified (principal); J39.1 Other abscess of pharynx | CPT/HCPCS: A0425; A0427 ==